=== PATIENT | female | born 1975 | race Two or more races ===

== ENCOUNTER 2018-12-04 18:15 | Inpatient (IN) | payer MEDICAID, OTHER | END 2018-12-06 22:00 | disposition home or self-care (01) | LOC: OVERFLOW 18:16 → TELE-WESTW 12-06 03:19 → WEST WING 12-05 04:04 → ER 18:15 | DX: I63.9 Cerebral infarction, unspecified (principal); I11.9 Hypertensive heart disease without heart failure ==

== ENCOUNTER 2020-05-06 01:48 | Emergency (ER) | payer OTHER, MEDICAID ==
[~2020-05-06] VITALS: Ht 160 cm; Wt 52.2 kg
[~2020-05-06 01:48] MED LIST: ASPI81CH43 PO; ATOR20TA50 PO; FLUO60TA PO; LISI-648 PO
[2020-05-06] MEDS ORDERED: SODIUM CHLORIDE 0.9% 1,000 ML IV ONE (03:45)
[2020-05-06 07:40] LABS: Basophils # (auto) 0 10 ^3/uL (0-0.2); Basophils % (auto) 0.1 % (0.0-2.0); Eosinophils # (auto) 0 10 ^3/uL (0-0.8); Lymphocytes # (auto) 0.6 10 ^3/uL (0.4-5.4); Neutrophils # (auto) 2.7 10 ^3/uL (1.6-8.6); White Blood Cell 3.5 10^3/uL (4.4-10.8)
[2020-05-06 07:42] LABS: Hematocrit 25.2 % (36.0-46.0); Hemoglobin 8.1 g/dL (12.2-16.2); Lymphocytes % (auto) 16.5 % (10.0-50.0); Mean Corpuscular Volume 68.9 fL (80.0-100.0); Monocytes # (auto) 0.2 10 ^3/uL (0-1.3); Monocytes % (auto) 5.1 % (0.0-12.0); Neutrophils % (auto) 78.3 % (37.0-80.0); Platelet Count (auto) 125 10^3/uL (140-450); Red Blood Cells 3.66 10^6/uL (4.0-5.20); Red Cell Distribution Width 17.9 % (11.8-14.3)
[2020-05-06 07:59] LABS: Chloride 109 mmol/L (98-107); Potassium 3.9 mmol/L (3.5-5.1); Sodium 137 mmol/L (136-145)
[2020-05-06 08:11] LABS: Alanine Aminotransferase 17 U/L (13-56); Albumin 2.8 g/dL (3.4-5.0); Alkaline Phosphatase 63 U/L (45-117); Anion Gap 7 (5-15); Aspartate Aminotransferase 17 U/L (15-37); Bilirubin, Total 0.2 mg/dL (0.2-1.0); Blood Urea Nitrogen 16 mg/dL (7-18); Calcium 7.6 mg/dL (8.5-10.1); Carbon Dioxide 21 mmol/L (21-32); GFR African American 82 mL/min; GFR Non-African American 68 mL/min; Glucose 97 mg/dL (74-106); Total Protein 6.5 g/dL (6.4-8.2)
[2020-05-06 09:50] VITALS: BP 149/62
[2020-05-06 10:18] LABS: Partial Thromboplastin Time 27.3 sec (23.0-31.2)
== END 2020-05-06 10:42 | disposition home or self-care (01) ==
LOC: EDBD 01:48 → ER 01:48
DX: R41.82 Altered mental status, unspecified (principal); I95.9 Hypotension, unspecified; E78.5 Hyperlipidemia, unspecified; I10 Essential (primary) hypertension; Z86.73 Personal history of transient ischemic attack (TIA), and cerebral infarction without residual deficits
CPT/HCPCS: 36415; 70450; 71045; 80053; 84484; 85025; 85610; 85730; 93005; 96360; 96361; 99285; J7030

== ENCOUNTER 2020-05-09 10:58 | Emergency (ER) | payer OTHER, MEDICAID ==
[~2020-05-09] VITALS: Ht 160 cm; Wt 52.2 kg
[2020-05-09 12:01] VITALS: BP 102/68
[2020-05-09] MEDS ORDERED: methylPREDNISolone SOD SUCC 125 MG/2 ML VL ONE (13:16)
[2020-05-09] MEDS ORDERED: diphenhdrAMINE HCL 50 MG/1 ML VL ONE (13:17)
== END 2020-05-09 14:20 | disposition home or self-care (01) ==
LOC: ER 10:58
DX: L50.0 Allergic urticaria (principal)
CPT/HCPCS: 99283; J1200; J2930

== ENCOUNTER 2024-03-30 15:07 | Inpatient (IN) | payer BC, MEDICAID ==
[~2024-03-30] VITALS: Ht 160 cm; Wt 57.5 kg
[~2024-03-30 15:07] MED LIST changes: +ESCI20TA PO; +FERR325T20 PO; +FURO40TA4 PO; -LISI-648 PO; +LISI10TA34 PO; +MACI1TAB2 PO; +POTA-228 PO; +SILD20TA41 PO; +SUMA50TA16 PO; +TREP1TAB PO
[2024-03-30] MEDS ORDERED: MORPHINE SULFATE INJ 2 MG/ml SYRG IV PRN (18:00)
[2024-03-30] MEDS ORDERED: ONDANSETRON HCL 4 MG/2 ML VIAL IV PRN (18:00)
[2024-03-30] MEDS: ALBUTEROL SULF 2.5 MG/0.5ML(0.5%) NEB SOLN NEB SCH (18:00)
[2024-03-30] MEDS: FUROSEMIDE 40 MG/4 ML VIAL IV SCH (18:00)
[2024-03-30] MEDS ORDERED: NITROGLYCERIN 0.4 MG SL TAB SL PRN (18:00)
[2024-03-30 19:31] VITALS: BP 109/75; PULSE 84; RESP 17; TEMP 97.5; O2SAT 94
[2024-03-30 20:00] VITALS: PULSE 81; O2SAT 94
[2024-03-30] MEDS: PIPERACILLIN-TAZOB 3.375GM 100 ML IV ONE (20:15)
[2024-03-30] MEDS: POTASSIUM CHLORIDE 8 MEQ TAB PO SCH (20:56)
[2024-03-30 21:00] VITALS: BP 110/76; PULSE 89; RESP 17; TEMP 98.3; O2SAT 91
[2024-03-30] MEDS: methylPREDNISolone SOD SUCC 40 MG/ML VL IV SCH (21:12)
[2024-03-30] MEDS: MORPHINE SULFATE INJ 2 MG/ml SYRG IV PRN (21:12)
[2024-03-30 21:43] VITALS: BP 109/75; PULSE 84; RESP 18; TEMP 98.3; O2SAT 93
[2024-03-31] VITALS (14 sets, daily range): BP systolic 93–115; BP diastolic 56–74; PULSE 68–99; RESP 14–24; TEMP 97.3–98.5; O2SAT 91–98
--- NOTE | 2024-03-31 00:35 | DVHHP2 ---
RAHEEM TAYLOR NP 03/31/24 0035: History of Present Illness Reason for Visit: syncope and fall History of Present Illness Elinor Franco is a 49 y.o. female patient with history of pulmonary HTN who presents with a chief complaint of nausea, vomiting, and diarrhea for the past couple of days. Patient had an unwitnessed fall today when she got up to use her commode. She was found down on the ground by family members. Denies recalling the event. EMS reported the patient was hypotensive on arrival and hypoxic with oxygen saturation of 80%. On arrival to the emergency department patient had an oxygen saturation 92% on 10 L nonrebreather mask. Patient denies any fevers, chills, , chest pain, palpitations, leg edema. Patient was initially seen At [facility] emergency department and transferred to [facility] per O request Initial findings as follow W5.1, H&H 10.8/35.4, PLT 128 Na 143, K3 .4, BUN 29, creatinine 1.20, GFR 55 D Dimer 191 UA negative ABG pH 7.3, PCO2 34, PO [address]: right periorbital and facial soft tissue swelling without underlying fracture or acute intracranial abnormality. CTC spine: no evidence of acute fracture or subluxation CTA chest: no acute abnormality. No pulmonary embolus CXR: moderate multifocal patchy airspace disease Cardiovascular: HTN Smoke: No ALCOHOL: none Drugs: None Lives: with Family Review of Systems Constitutional: Yes: Weakness; No: Fever, Chills, Sweats, Malaise, Other Eyes: No: Pain, Vision change, Conjunctivae inflammation, Eyelid inflammation, Other, Redness Respiratory: Shortness of breath; No: Cough, Dry, SOB with excertion, Wheezing, Hemoptysis, Pleuritic Pain, Sputum, Wheezing, Other Cardiovascular: No: Chest Pain, Palpitations, Orthopnea, Paroxysmal Noc. Dyspnea, Edema, Lt Headedness, Other Gastrointestinal: No: Nausea, Vomiting, Abdominal Pain, Diarrhea, Constipation, Melena, Hematochezia, Other Genitourinary: No Dysuria, No Frequency, No Incontinence, No Hematuria, No Retention, No Other Musculoskeletal: No: other, neck pain, shoulder pain, arm pain, back pain, hand pain, leg pain, foot pain Neurological: No: Weakness, Numbness, Incoordination, Change in speech, Confusion, Seizures, Other Allergies: Coded Allergies: NO KNOWN ALLERGIES (Unverified , 12/04/18) Medications Current Medications Medications Dose Ordered Sig/Abrahan Route Start Time Stop Time Status Last Admin Dose Admin Nitroglycerin 0.4 mg Q5MINP PRN SL 03/30/24 18:00 Morphine Sulfate 2 mg Q30M PRN IV 03/30/24 18:00 Piperacillin Sod/ Tazobactam Sod 100 ml @ 25 mls/hr Q8H IV 03/31/24 01:00 Albuterol 2.5 mg Q6HWA NEB 03/30/24 18:00 Furosemide 40 mg BIDD IV 03/30/24 18:00 03/30/24 18:00 40 MG Potassium Chloride 8 meq BID PO 03/30/24 22:00 03/30/24 20:56 8 MEQ Ondansetron HCl 4 mg Q4HPRN PRN IV 03/30/24 18:00 Morphine Sulfate 2 mg Q4HPRN PRN IV 03/30/24 18:00 03/30/24 21:12 2 MG Famotidine 20 mg DAILY PO 03/31/24 10:00 Enoxaparin Sodium 40 mg DAILY SC 03/31/24 10:00 Methylprednisolone Sodium Succinate 20 mg BID IV 03/30/24 22:00 03/30/24 21:12 20 MG Exam Vital Signs Vital Signs Date Time Temp Pulse Resp B/P (MAP) Pulse Ox O2 Delivery O2 Flow Rate FiO2 03/30/24 21:43 98.3 84 18 109/75 93 21 98.3 03/30/24 20:00 Nasal Cannula* 4 General Appearance: Alert, Oriented X3, Cooperative, mild distress HEENT: Other (Hematoma Right eye) Respiratory: Clear to auscultation, Normal air movement Cardiovascular: Regular rate, Normal S1, Normal S2 Abdominal: Normal bowel sounds, Soft, No tenderness Extremities: No clubbing, No cyanosis, No edema, Normal pulses Skin: No breakdown Neuro: Normal speech, Cranial nerves 3-12 NL Psych/Mental Status: Mental status NL, Mood NL Assessment/Plan Assessment/Plan Acute hypoxic respiratory failure Pneumonia Syncope and collapse Anemia, chronic Hx CHF Plan Admit to telemetry Consult ID. IV ABX Echocardiogram. Orthostatic vital signs Bronchodilators. As needed supplemental O2 to maintain O2 saturation greater than 93%. IV steroids. Monitor CBC/BMP. Correct electrolytes as needed. GI Prophylaxis Pepcid / DVT prophylaxis Lovenox Plan discussed with: Patient Date of Service: Mar 31, 2024 Billing Provider: TATE POLANCO MD Common Visit Codes: NOT BILLABLE TATE POLANCO MD 03/31/24 1241: Review of Systems Allergies: Coded Allergies: NO KNOWN ALLERGIES (Unverified , 12/04/18) Additional Comments Additional Comments Additional Comments Patient seen and evaluated by nurse practitioner. Patient has shaft is reviewed. I agree with the nurse practitioner's evacuation, documentation, assessment and care plan as outlined. Patient seen and evaluated by me this afternoon. RAHEEM TAYLOR NP Mar 31, 2024 00:35 TATE POLANCO MD Mar 31, 2024 12:41
[2024-03-31] MEDS: PIPERACILLIN-TAZOB 3.375GM 100 ML IV SCH (01:28)
--- NOTE | 2024-03-31 07:16 | DVH ---
CHEST RADIOGRAPH Indication:sob Technique: Single frontal view of the chest was obtained Comparison: CHEST PORTABLE on DOS: 05/06/20 FINDINGS: Lines and Tubes: None Lungs: Diffuse bilateral consolidation. Right perihilar density. Pleura: No effusion. No pneumothorax. Cardiomediastinal contours: Cardiovascular silhouette is magnified. Bones: No acute osseous abnormality. IMPRESSION: 1. Diffuse bilateral consolidation. Right perihilar density. Noncontrast CT is recommended to exclu de mass.
[2024-03-31 07:20] LABS: Basophils # (auto) 0 10 ^3/uL (0-0.2); Basophils % (auto) 0.6 % (0.0-2.0); Eosinophils # (auto) 0 10 ^3/uL (0-0.8); Hematocrit 33.6 % (36.0-46.0); Hemoglobin 10.8 g/dL (12.2-16.2); Lymphocytes # (auto) 0.4 10 ^3/uL (0.4-5.4); Lymphocytes % (auto) 12.4 % (10.0-50.0); Mean Corpuscular Hemoglobin 28.5 pg (28.0-32.0); Mean Corpuscular Hgb Conc. 32.3 g/dL (32.0-36.0); Mean Corpuscular Volume 88.4 fL (80.0-100.0); Monocytes # (auto) 0.1 10 ^3/uL (0-1.3); Monocytes % (auto) 4.3 % (0.0-12.0); Neutrophils # (auto) 2.6 10 ^3/uL (1.6-8.6); Neutrophils % (auto) 82.7 % (37.0-80.0); Nucleated Red Blood Cells % 0.2 %; Platelet Count (auto) 122 10^3/uL (140-450); Red Cell Distribution Width 16.1 % (11.8-14.3); White Blood Cell 3.2 10^3/uL (4.4-10.8)
[2024-03-31 07:25] LABS: Calcium 8.8 mg/dL (8.7-10.4); Chloride 112 mmol/L (98-107); Sodium 141 mmol/L (136-145)
[2024-03-31 07:26] LABS: Anion Gap 11 (5-15); Carbon Dioxide 18 mmol/L (20-31)
[2024-03-31 07:32] LABS: BUN/Creatinine Ratio 14.6 (10.0-20.0); Blood Urea Nitrogen 19 mg/dL (9-23); Glucose 125 mg/dL (74-106)
[2024-03-31] MEDS: ENOXAPARIN SOD 40 MG/0.4 ML SYRINGE SC SCH (10:26)
[2024-03-31] MEDS: FAMOTIDINE 20 MG TAB PO SCH (10:27)
--- NOTE | 2024-03-31 11:33 | DVHINCON2 ---
Date of service: Mar 31, 2024 Reason for Consultation Syncope and fall. History of Present Illness Patient is a 49-year-old female presents to the hospital for the complaint of nausea, vomiting, and diarrhea for the past couple of days. Patient had an unwitnessed fall today when she got up to use her commode. She w as found down on the ground by family members. She denies recalling the event. EMS reported the patient was hypotensive on arrival and hypoxic with oxygen saturation of 80%. On arrival to the emergency department patient had an oxygen saturation 92% on 10 L nonrebreather mask. She denies any fevers, chills, chest pain, palpitations or leg edema. She is on nasal canula. Patient was initially seen At [facility] emergency department and transferred to [facility] per O request. Chest x-ray: 03/31: Diffuse bilateral consolidation. Right perihilar density. Noncontrast CT is recommended to exclude mass. Initial findings as follow W5.1, H&H 10.8/35.4, PLT 128 Na 143, K3 .4, BUN 29, creatinine 1.20, GFR 55 D Dimer 191 UA negative ABG pH 7.3, PCO2 34, PO [address]: right periorbital and facial soft tissue swelling without underlying fracture or acute intracranial abnormality. CTC spine: no evidence of acute fracture or subluxation CTA chest: no acute abnormality. No pulmonary embolus CXR: moderate multifocal patchy airspace disease Past Medical History She has a history of pulmonary Hypertension. Family History: Cerebrovascular accident (CVA) G8 FATHER Hypertension G8 MOTHER G8 FATHER G8 SISTER Social History Smoke: No ALCOHOL: none Drugs: None Lives: with Family Allergies: Coded Allergies: NO KNOWN ALLERGIES (Unverified , 12/04/18) Home Meds Active Scripts Atorvastatin Calcium (ATORVASTATIN CALCIUM) 20 Mg Tab, 20 MG PO HS, #30 TAB Prov:HARMAN HAMM MD 12/06/18 Aspirin (Asa) 81 Mg Ch, 81 MG PO DAILY, #30 Prov:HARMAN HAMM MD 12/06/18 Reported Medications Lisinopril (Lisinopril) 10 Mg Tab, 10 MG PO DAILY, TAB 12/05/18 Fluoxetine Hcl (FLUOXETINE HCL) 60 Mg Tab, 20 MG PO DAILY, TAB 12/05/18 Current Medications Current Medications Medications (Trade) Dose Ordered Sig/Abrahan Route PRN Reason Start Time Stop Time Status Last Admin Nitroglycerin (Ntrostat Sublingual) 0.4 mg Q5MINP PRN SL FOR CHEST PAIN 03/30/24 18:00 Morphine Sulfate 2 mg Q30M PRN IV FOR CHEST PAIN 03/30/24 18:00 Piperacillin Sod/ Tazobactam Sod 100 ml @ 25 mls/hr Q8H IV 03/31/24 01:00 03/31/24 10:27 Albuterol (Ventolin Medneb) 2.5 mg Q6HWA NEB 03/30/24 18:00 03/31/24 06:40 Furosemide (Lasix Injection) 40 mg BIDD IV 03/30/24 18:00 03/31/24 06:25 Potassium Chloride (Klor-Con Tablet) 8 meq BID PO 03/30/24 22:00 03/31/24 10:28 Ondansetron HCl (Zofran) 4 mg Q4HPRN PRN IV NAUSEA / VOMITING 03/30/24 18:00 Morphine Sulfate 2 mg Q4HPRN PRN IV SEVERE PAIN (7-10 PAIN SCALE) 03/30/24 18:00 03/31/24 10:41 Famotidine (Pepcid Tablet) 20 mg DAILY PO 03/31/24 10:00 03/31/24 10:27 Enoxaparin Sodium (Lovenox) 40 mg DAILY SC 03/31/24 10:00 03/31/24 10:26 Methylprednisolone Sodium Succinate (Solu Medrol) 20 mg BID IV 03/30/24 22:00 03/31/24 10:26 Review of Systems Constitutional: Yes: Weakness; No: Fever, Chills, Sweats, Malaise, Other Eyes: No: Pain, Vision change, Conjunctivae inflammation, Eyelid inflammation, Other, Redness Respiratory: Shortness of breath; No: Cough, Dry, SOB with excertion, Wheezing, Hemoptysis, Pleuritic Pain, Sputum, Wheezing, Other Cardiovascular: No: Chest Pain, Palpitations, Orthopnea, Paroxysmal Noc. Dyspnea, Edema, Lt Headedness, Other Gastrointestinal: No: Nausea, Vomiting, Abdominal Pain, Diarrhea, Constipation, Melena, Hematochezia, Other Genitourinary: No Dysuria, No Frequency, No Incontinence, No Hematuria, No Retention, No Other Musculoskeletal: No: other, neck pain, shoulder pain, arm pain, back pain, hand pain, leg pain, foot pain, leg edema. Neurological: No: Weakness, Numbness, Incoordination, Change in speech, Confusion, Seizures, Other Vital Signs Vital Signs Date Time Temp Pulse Resp B/P (MAP) Pulse Ox O2 Delivery O2 Flow Rate FiO2 03/31/24 10:41 55 16 127/64 03/31/24 09:00 97.3 94 97.3 03/31/24 06:40 Nasal Cannula* 3 32 Physical Exam General Appearance: Alert, Oriented X3, Cooperative, mild distress HEENT: Other (Hematoma Right eye) Respiratory: Clear to auscultation, Normal air movement Cardiovascular: Regular rate, Normal S1, Normal S2 Abdominal: Normal bowel sounds, Soft, No tenderness Extremities: No clubbing, No cyanosis, No edema, Normal pulses Skin: No breakdown Neuro: Normal speech, Cranial nerves 3-12 NL Psych/Mental Status: Mental status NL, Mood NL Labs/Diagnostic Data Labs Test 03/31/24 05:43 Range/Units White Blood Count 3.2 L 4.4-10.8 10^3/uL Red Blood Count 3.80 L 4.0-5.20 10^6/uL Hemoglobin 10.8 L 12.2-16.2 g/dL Hematocrit 33.6 L 36.0-46.0 % Mean Corpuscular Volume 88.4 80.0-100.0 fL Mean Corpuscular Hemoglobin 28.5 28.0-32.0 pg Mean Corpuscular Hemoglobin Concent 32.3 32.0-36.0 g/dL Red Cell Distribution Width 16.1 H 11.8-14.3 % Platelet Count 122 L 140-450 10^3/uL Mean Platelet Volume 10.5 6.9-10.8 fL Neutrophils (%) (Auto) 82.7 H 37.0-80.0 % Lymphocytes (%) (Auto) 12.4 10.0-50.0 % Monocytes (%) (Auto) 4.3 0.0-12.0 % Eosinophils (%) (Auto) 0.0 0.0-7.0 % Basophils (%) (Auto) 0.6 0.0-2.0 % Neutrophils # (Auto) 2.6 1.6-8.6 10 ^3/uL Lymphocytes # (Auto) 0.4 0.4-5.4 10 ^3/uL Monocytes # (Auto) 0.1 0-1.3 10 ^3/uL Eosinophils # (Auto) 0 0-0.8 10 ^3/uL Basophils # (Auto) 0 0-0.2 10 ^3/uL Nucleated Red Blood Cells 0.2 % Sodium Level 141 136-145 mmol/L Potassium Level 4.0 3.5-5.1 mmol/L Chloride Level 112 H 98-107 mmol/L Carbon Dioxide Level 18 L 20-31 mmol/L Anion Gap 11 5-15 Blood Urea Nitrogen 19 9-23 mg/dL Creatinine 1.30 H 0.550-1.02 mg/dL Glomerular Filtration Rate Calc 50 >90 mL/min BUN/Creatinine Ratio 14.6 10.0-20.0 Serum Glucose 125 H 74-106 mg/dL Calcium Level 8.8 8.7-10.4 mg/dL Assessment Patient is a 49-year-old female presented to the hospital with: Pneumonia Acute hypoxic respiratory failure Syncope and collapse Anemia, chronic Hx CHF Recommendations: SEYMOUR DUNN MD Mar 31, 2024 11:33
--- NOTE | 2024-03-31 16:20 | DVH ---
Procedure: CT CHEST WITHOUT CONTRAST Reason for study/Clinical History: Pneumonia/pulmonary hypertension Comparison Study: None available at time of dictation. Exam Date: 03/31/2024 03:39 PM TECHNIQUE: Multidetector CT of the chest was performed from the lung apices to the upper abdomen with out the use of intravenous contract. Axial, coronal and sagittal multiplanar reformats were performed . Radiation Dose Information: CT Dose: CTDI volume is 6.56 mGy. Dose-length product is 264.77 mGy*cm The dose indicators for CT are the volume Computed Tomography (CT) Dose Index (CTDIvol) and the Dose Length Product (DLP), and are measured in units of mGy and mGy-cm, respectively. These indicators are not patient dose, but values generated from the CT scanner acquisition factors. The report includes radiation exposure data for exposures received during this examination. FINDINGS: Lower neck: Normal thyroid. Lungs: No focal consolidation, pleural effusion or pneumothorax. Atelactasis and scarring in the lung bases. Heart/Vascular Structures: [id number] cardiomegaly. Moderate pericardial effusion. Lymph Nodes: No adenopathy Pleura: No pleural effusion or significant pneumothorax. Musculoskeletal: No acute osseous abnormality. Soft tissues: Normal. Upper abdomen: Heterogeneous appearance of the liver. IMPRESSION: 1. No pneumonia. [id number] cardiomegaly. Moderate pericardial effusion. Heterogeneous appeara nce of the liver. Consider further evaluation with CT of the abdomen with contrast. Radiation optimization: All CT scans at this facility use at least one of these dose optimization montrell hniques: automated exposure control mA and/or kV adjustment per patient size (includes targeted exam s where dose is matched to clinical indication) or iterative reconstruction. HS:Y
--- NOTE | 2024-03-31 16:34 | DVHSR ---
APPROVED REPORT EXAM: Two-dimensional and M-mode echocardiogram with Doppler, color Doppler and Bubble Study. Blood Pressure: 96/61 mmHg INDICATION Heart Failure RISK FACTORS Height: 5'3", Weight: 130 DIMENSIONS LVDd3.2 (3.8-5.7cm)LA (2D)3.0 (1.9-4.0cm)Aortic Root3.1 (2.0-3.7cm) LVDs2.0 (2.5-4.0cm)LA (MM) (1.9-4.0cm)Aortic Cusp Exc1.8 (1.5-2.0cm) EF (%) 70.0 (55-70%)Rt. Atrium6.5 (1.9-4.0cm)Asc. Aorta3.2 cm IVSd1.6 (0.7-1.1cm)RV (D)4.7 (1.8-2.4cm) PWd1.1 (0.7-1.1cm) Mitral Valve MitralMitral Stenosis E wave0.48m/sMV Mean GR.mmHg A wave0.57m/sMV Peak GR.mmHg E/A ratio0.82D MVAcm2 DECEL [id number] 1/2 Timems Aortic Valve Aortic ValveAortic Stenosis V10.65m/Liza Mean GR.1mmHg V20.74m/Liza Peak GR.2mmHg LVOT Diameter2.1 (1.8-2.4cm)Doppler AVA3.04cm2 2D AVA2.20cm2 AI P 1/2 Xfex751.04ms Pulmonic Valve V20.67m/s Tricuspid Valve TR Velocity4.12m/s [id number] ATRIA Injection of contrast documented an interatrial shunt. Conclusion Severe concentric left ventricular hypertrophy. Normal left ventricular systolic function estimated ejection fraction 55%. There is a grade 1 diastolic dysfunction. Severe right ventricular hypertrophy. Severe right ventricular systolic dysfunction. Severe pulmona ry hypertension with estimated right ventricular systolic pressure 80 mm of mercury. Severe right atrial dilatation. There is right and left intra-atrial shunting evident by bubble study. In keeping with the patent fo ramen ovale versus longstanding small secundum ASD. There is right ventricular outflow tract hypertrophy. There is moderate pulmonary valve regurgitatio n. The aortic valve is trileaflet opens well there is no evidence of stenosis or regurgitation. The mitral valve shows mild mitral valve regurgitation. The tricuspid valve has moderately severe tricuspid valve regurgitation. No significant pericardial effusion.
[2024-03-31] MEDS: ATORVASTATIN 20 MG TAB PO SCH (22:04)
[2024-04-01] VITALS (10 sets, daily range): BP systolic 0–108; BP diastolic 56–64; PULSE 74–89; RESP 15–17; TEMP 97.6–98.5; O2SAT 94–97
[2024-04-01] MEDS ORDERED: ACETAMINOPHEN 325 MG TAB PO PRN (01:00)
[2024-04-01 06:35] LABS: Basophils # (auto) 0 10 ^3/uL (0-0.2); Basophils % (auto) 0.3 % (0.0-2.0); Eosinophils # (auto) 0 10 ^3/uL (0-0.8); Hematocrit 33.9 % (36.0-46.0); Hemoglobin 11.2 g/dL (12.2-16.2); Lymphocytes # (auto) 0.4 10 ^3/uL (0.4-5.4); Lymphocytes % (auto) 6.3 % (10.0-50.0); Mean Corpuscular Hemoglobin 28.4 pg (28.0-32.0); Mean Corpuscular Volume 86.2 fL (80.0-100.0); Monocytes # (auto) 0.2 10 ^3/uL (0-1.3); Monocytes % (auto) 2.5 % (0.0-12.0); Neutrophils # (auto) 5.6 10 ^3/uL (1.6-8.6); Neutrophils % (auto) 90.9 % (37.0-80.0); Nucleated Red Blood Cells % 0.1 %; Platelet Count (auto) 136 10^3/uL (140-450); Red Blood Cells 3.93 10^6/uL (4.0-5.20); Red Cell Distribution Width 15.9 % (11.8-14.3); White Blood Cell 6.1 10^3/uL (4.4-10.8)
[2024-04-01 06:47] LABS: Anion Gap 9 (5-15); Carbon Dioxide 25 mmol/L (20-31); Chloride 108 mmol/L (98-107); Potassium 3.6 mmol/L (3.5-5.1); Sodium 142 mmol/L (136-145)
[2024-04-01 06:49] LABS: Calcium 8.7 mg/dL (8.7-10.4)
[2024-04-01 06:53] LABS: Blood Urea Nitrogen 26 mg/dL (9-23); Glucose 127 mg/dL (74-106)
[2024-04-01] MEDS ORDERED: PATIENTS OWN MEDICATION (Lisinopril 10 MG) PO SCH (10:00)
[2024-04-01] MEDS: LISINOPRIL 5 MG TAB PO SCH (10:00)
[2024-04-01] MEDS ORDERED: PATIENTS OWN MEDICATION (Fluoxetine Hcl 20 MG) PO SCH (10:00)
[2024-04-01] MEDS: FLUoxetine HCL 20 MG CAP PO SCH (10:22)
[2024-04-01] MEDS: ASPirin 81 mg TAB PO SCH (10:23)
--- NOTE | 2024-04-01 11:40 | DVHPN2 ---
Progress Note - Dictate Date Seen: Apr 01, 2024 Subjective Patient was seen and evaluated at bedside. Vitals are stable. She is on nasal canula. Antibiotic status: Piperacillin Sodium 100 ml @ 25 ml/hr [Started 03/31 - ongoing] vital signs Vital Sign Date Time Temp Pulse Resp B/P (MAP) Pulse Ox O2 Delivery O2 Flow Rate FiO2 04/01/24 11:13 94 Nasal Cannula 3.0 04/01/24 11:13 32 04/01/24 10:36 84 16 93/58 04/01/24 08:43 98.5 98.5 Total Intake and Output 03/31/24 03/31/24 04/01/24 15:00 23:00 07:00 Intake Total 975 ml 500 ml Output Total 600 ml Balance 975 ml -100 ml medications Current Medications Medications Dose Ordered Sig/Abrahan Route Start Time Stop Time Status Last Admin Dose Admin Nitroglycerin 0.4 mg Q5MINP PRN SL 03/30/24 18:00 Morphine Sulfate 2 mg Q30M PRN IV 03/30/24 18:00 Piperacillin Sod/ Tazobactam Sod 100 ml @ 25 mls/hr Q8H IV 03/31/24 01:00 04/01/24 10:52 25 MLS/HR Albuterol 2.5 mg Q6HWA NEB 03/30/24 18:00 03/31/24 18:14 2.5 MG Furosemide 40 mg BIDD IV 03/30/24 18:00 03/31/24 17:37 40 MG Potassium Chloride 8 meq BID PO 03/30/24 22:00 04/01/24 10:23 8 MEQ Ondansetron HCl 4 mg Q4HPRN PRN IV 03/30/24 18:00 Morphine Sulfate 2 mg Q4HPRN PRN IV 03/30/24 18:00 04/01/24 10:36 2 MG Famotidine 20 mg DAILY PO 03/31/24 10:00 04/01/24 10:24 20 MG Enoxaparin Sodium 40 mg DAILY SC 03/31/24 10:00 04/01/24 10:22 40 MG Methylprednisolone Sodium Succinate 20 mg BID IV 03/30/24 22:00 04/01/24 10:23 20 MG Aspirin 81 mg DAILY PO 04/01/24 10:00 04/01/24 10:23 81 MG Atorvastatin Calcium 20 mg HS PO 03/31/24 22:00 03/31/24 22:04 20 MG Patient Own Medication 20 mg DAILY PO 04/01/24 10:00 UNV Patient Own Medication 10 mg DAILY PO 04/01/24 10:00 UNV Lisinopril 10 mg DAILY PO 04/01/24 10:00 Fluoxetine HCl 20 mg DAILY PO 04/01/24 10:00 04/01/24 10:22 20 MG Acetaminophen 650 mg Q6HP PRN PO 04/01/24 01:00 objective General Appearance: Alert, Oriented X3, Cooperative, mild distress HEENT: Other (Hematoma Right eye) Respiratory: Clear to auscultation, Normal air movement Cardiovascular: Regular rate, Normal S1, Normal S2 Abdominal: Normal bowel sounds, Soft, No tenderness Extremities: No clubbing, No cyanosis, No edema, Normal pulses Skin: No breakdown Neuro: Normal speech, Cranial nerves 3-12 NL Psych/Mental Status: Mental status NL, Mood NL laboratory and microbiology Laboratory Tests 04/01/24 04:55 Test 04/01/24 04:55 Range/Units Serum Glucose 127 H 74-106 mg/dL Assessment/Plan Patient is a 49-year-old female presented to the hospital with: Pneumonia Acute hypoxic respiratory failure Syncope and collapse Anemia, chronic Hx CHF Recommendations: SEYMOUR DUNN MD Apr 01, 2024 11:40
--- NOTE | 2024-04-01 14:39 | DVHDS2 ---
Discharge Summary Date of Admission Mar 30, 2024 at 19:13 Date of Discharge: Apr 01, 2024 Labs/Diagnostic Data: Laboratory Results Test 04/01/24 04:55 03/31/24 21:09 03/31/24 05:43 White Blood Count 6.1 10^3/uL (4.4-10.8) Red Blood Count 3.93 10^6/uL (4.0-5.20) Hemoglobin 11.2 g/dL (12.2-16.2) Hematocrit 33.9 % (36.0-46.0) Mean Corpuscular Volume 86.2 fL (80.0-100.0) Mean Corpuscular Hemoglobin 28.4 pg (28.0-32.0) Mean Corpuscular Hemoglobin Concent 33.0 g/dL (32.0-36.0) Red Cell Distribution Width 15.9 % (11.8-14.3) Platelet Count 136 10^3/uL (140-450) Mean Platelet Volume 10.1 fL (6.9-10.8) Neutrophils (%) (Auto) 90.9 % (37.0-80.0) Lymphocytes (%) (Auto) 6.3 % (10.0-50.0) Monocytes (%) (Auto) 2.5 % (0.0-12.0) Eosinophils (%) (Auto) 0.0 % (0.0-7.0) Basophils (%) (Auto) 0.3 % (0.0-2.0) Neutrophils # (Auto) 5.6 10 ^3/uL (1.6-8.6) Lymphocytes # (Auto) 0.4 10 ^3/uL (0.4-5.4) Monocytes # (Auto) 0.2 10 ^3/uL (0-1.3) Eosinophils # (Auto) 0 10 ^3/uL (0-0.8) Basophils # (Auto) 0 10 ^3/uL (0-0.2) Nucleated Red Blood Cells 0.1 % Sodium Level 142 mmol/L (136-145) Potassium Level 3.6 mmol/L (3.5-5.1) Chloride Level 108 mmol/L (98-107) Carbon Dioxide Level 25 mmol/L (20-31) Anion Gap 9 (5-15) Blood Urea Nitrogen 26 mg/dL (9-23) Creatinine 1.62 mg/dL (0.550-1.02) Glomerular Filtration Rate Calc 38 mL/min (>90) BUN/Creatinine Ratio 16.0 (10.0-20.0) Serum Glucose 127 mg/dL (74-106) Calcium Level 8.7 mg/dL (8.7-10.4) POC Glucose 202 mg/dl (70-106) Other Laboratory Tests 04/01/24 04:55 Brief Hx & Hospital Course: Elinor Franco is a 49 y.o. female patient with history of pulmonary HTN who presents with a chief complaint of nausea, vomiting, and diarrhea for the past couple of days. Patient had an unwitnessed fall today when she got up to use her commode. She was found down on the ground by family members. Denies recalling the event. EMS reported the patient was hypotensive on arrival and hypoxic with oxygen saturation of 80%. On arrival to the emergency department patient had an oxygen saturation 92% on 10 L nonrebreather mask. Patient denies any fevers, chills, , chest pain, palpitations, leg edema. Patient was initially seen [facility] emergency department and transferred to [facility] per O request. She is admitted and received IV diuretics. Treated with the breathing treatments. Patient resumed on her pulmonary hypertension medications. Chest CT did not show any pneumonia. [id number] cardiomegaly noted. 2D echocardiogram done showed a grade 1 diastolic dysfunction. Right ventricular systolic pressure elevated at 83 mm of medically consistent with pulmonary hypertension. No significant pericardial effusion identified. Patient is counseled and educated regarding oral fluid restriction at home given her diastolic heart failure along with pulmonary hypertension. Patient is advised to continue her Lasix at home as well. Patient is back to baseline 3 L oxygen in the hospital oxygenating normal. Patient is otherwise feeling better. Therefore it is felt she could be safely discharged home. However she is strongly advised to follow up with senior oracle pl sql developer did have referral to [facility] specialist for further management of her advanced pulmonary hypertension and diastolic heart failure. Meantime patient is advised to be compliant with the her diuretics and pulmonary hypertension medications. Patient verbalized understanding of this, verbalized understanding over hospital diagnosis, CT scan findings, echocardiogram results, discharge medications, discharge instructions and agree with the discharge follow-up plan of care as mentioned. Operations or Procedures Conclusion Severe concentric left ventricular hypertrophy. Normal left ventricular systolic function estimated ejection fraction 55%. There is a grade 1 diastolic dysfunction. Severe right ventricular hypertrophy. Severe right ventricular systolic dysfunction. Severe pulmonary hypertension with estimated right ventricular systolic pressure 80 mm of mercury. Severe right atrial dilatation. There is right and left intra-atrial shunting evident by bubble study. In keeping with the patent foramen ovale versus longstanding small secundum ASD. There is right ventricular outflow tract hypertrophy. There is moderate pulmonary valve regurgitation. The aortic valve is trileaflet opens well there is no evidence of stenosis or regurgitation. The mitral valve shows mild mitral valve regurgitation. The tricuspid valve has moderately severe tricuspid valve regurgitation. No significant pericardial effusion. SIGNED BY: BOOM OLIVIA MD SIGNED DATE/TIME: 03/31/24 6640 Condition at Discharge: Stable Final Diagnosis/Problems List Pulmonary hypertension, acute on chronic respiratory failure Discharge Disposition: Home Discharge Instruct/Medications Diet: Consistent carbohydrate, Cardiac 2g Na,low cholest Diet comment: Strictly limit your oral fluid the/liquid intake daily to 1200 mL only. Activity: No Restrictions, As Tolerated Follow Up/Referral: Primary care physician and referral to [facility] specialist for further management Medications: Home medications Continued Medications: Aspirin (Asa) 81 Mg Ch 81 MG PO DAILY, #30 Atorvastatin Calcium (Atorvastatin Calcium) 20 Mg Tab 20 MG PO HS, #30 TAB Escitalopram Oxalate (Lexapro) 20 Mg Tab 1 TAB PO DAILY for 90 Days, #90 Ferrous Sulfate (Ferosul) 325 Mg Tab 1 TAB PO BID for 30 Days, #60 Fluoxetine Hcl (Fluoxetine Hcl) 60 Mg Tab 20 MG PO DAILY, TAB Furosemide (Furosemide) 40 Mg Tab 1 TAB PO BID for 30 Days, #60 Lisinopril (Lisinopril) 10 Mg Tab 10 MG PO DAILY, TAB Macitentan (Opsumit) 10 Mg Tab 1 TAB PO DAILY for 30 Days, #30 Potassium Chloride (Potassium Chloride ER) 10 Meq Tab 1 TAB PO DAILY for 30 Days, #30 Sildenafil Citrate (Sildenafil Citrate) 20 Mg Tab 1 MG PO TID for 30 Days, #90 Sumatriptan Succinate (Sumatriptan Succinate) 50 Mg Tab 1 TAB PO UD for 30 Days, #9 TAKE 1 TABLET BY MOUTH AT ONSET OF HEADACHE. IF NO RELIEF AFTER 2 HOURS, MAY TAKE ONE ADDITIONAL TABLET. Treprostinil Diolamine (Orenitram) 0.25 Mg Tab MG PO UD for 30 Days, #180 Discharge Statement: "Patient was advised to return to the ER or call 911 if any headaches, dizziness, shortness of breath, chest pain, abdominal pain, bleeding, fevers, or worsening of medical condition. Patient was counseled about treatment plan, medications, possible side effects, patientverbalized understanding. All questions were answered to the best of my ability. This discharge took greater then 30 minutes in planning, reviewing documentation, counseling the patient, and discussing with other team members." ASSESSMENT ASSESSMENT Assessment Pulmonary hypertension, acute on chronic respiratory failure TATE POLANCO MD Apr 01, 2024 14:39
== END 2024-04-01 19:43 | disposition home or self-care (01) | DRG 189 ==
LOC: TELE-CENTR 19:13
PROVIDERS: ADMIT Hospitalist; ATTEND Hospitalist
DX: J96.21 Acute and chronic respiratory failure with hypoxia (principal); D64.9 Anemia, unspecified; I50.9 Heart failure, unspecified; I95.9 Hypotension, unspecified; I11.0 Hypertensive heart disease with heart failure; I27.20 Pulmonary hypertension, unspecified; Z82.49 Family history of ischemic heart disease and other diseases of the circulatory system; Z82.3 Family history of stroke; W18.39XA Other fall on same level, initial encounter; Y93.89 Activity, other specified; Y92.89 Other specified places as the place of occurrence of the external cause; Y99.8 Other external cause status
CPT/HCPCS: 36415; 71045; 71250; 80048; 82962; 85025; 87278; 93306; 94640; 97163; G0378; J2543

== ENCOUNTER 2024-04-03 22:27 | Inpatient (IN) | payer BC, MEDICAID ==
[~2024-04-03] VITALS: Ht 160 cm; Wt 53.9 kg
[2024-04-03 23:02] LABS: Basophils # (auto) 0 10 ^3/uL (0-0.2); Basophils % (auto) 0.7 % (0.0-2.0); Eosinophils # (auto) 0.1 10 ^3/uL (0-0.8); Eosinophils % (auto) 1.9 % (0.0-7.0); Hematocrit 35.7 % (36.0-46.0); Hemoglobin 11.8 g/dL (12.2-16.2); Lymphocytes # (auto) 0.7 10 ^3/uL (0.4-5.4); Lymphocytes % (auto) 13.5 % (10.0-50.0); Mean Corpuscular Hemoglobin 28.9 pg (28.0-32.0); Mean Corpuscular Volume 87.6 fL (80.0-100.0); Monocytes # (auto) 0.3 10 ^3/uL (0-1.3); Monocytes % (auto) 4.6 % (0.0-12.0); Neutrophils # (auto) 4.4 10 ^3/uL (1.6-8.6); Neutrophils % (auto) 79.3 % (37.0-80.0); Platelet Count (auto) 120 10^3/uL (140-450); Red Blood Cells 4.07 10^6/uL (4.0-5.20); Red Cell Distribution Width 15.9 % (11.8-14.3); White Blood Cell 5.5 10^3/uL (4.4-10.8)
[2024-04-03 23:20] VITALS: PULSE 78; O2SAT 93
--- NOTE | 2024-04-03 23:20 | DVH ---
XY CHEST PORTABLE, HISTORY: Shortness a breath COMPARISON: XY CHEST PORTABLE on DOS: 03/31/24, CHEST PORTABLE on DOS: 05/06/20 XY CHEST PORTABLE on DOS: 03/31/24, CHEST PORTABLE on DOS: 05/06/20 TECHNICAL DATA: 1 view of the chest was obtained. FINDINGS: Lines and tubes: None Cardiomediastinal silhouette: enlarged Pulmonary vasculature: prominent Lung expansion: normal Lung airspace: normal Lung interstitium: normal Pleura: normal Pneumothorax: no Bones: Unremarkable Other: no IMPRESSION: Cardiomegaly with pulmonary vascular congestion.
[2024-04-03 23:31] LABS: Chloride 111 mmol/L (98-107); Potassium 3.7 mmol/L (3.5-5.1); Sodium 142 mmol/L (136-145)
[2024-04-03 23:32] LABS: Anion Gap 5 (5-15); Carbon Dioxide 26 mmol/L (20-31)
[2024-04-03 23:33] LABS: Calcium 8.9 mg/dL (8.7-10.4)
[2024-04-03 23:37] LABS: BUN/Creatinine Ratio 22.5 (10.0-20.0); Blood Urea Nitrogen 27 mg/dL (9-23); Glucose 97 mg/dL (74-106)
--- NOTE | 2024-04-03 23:40 | DVH ---
CT SCAN ABDOMEN AND PELVIS WITHOUT CONTRAST CLINICAL HISTORY: Diffuse abdominal pain TECHNIQUE: Helical axial images are obtained from the lung bases through the pelvis without oral cont rast. No intravenous contrast was administered. Coronal and sagittal reformatted images were generate d from thin section reconstructions. One or more of the following radiation dose reduction techniques were used for this examination: automated exposure control, adjustment of the mA and/or kV according to patient size, use of iterative reconstruction technique. COMPARISON: Correlation made to chest CT dated 03/31/2024. FINDINGS: LOWER THORAX: Imaged lung bases are grossly clear. Visualized heart is enlarged. ABDOMEN AND PELVIS: Evaluation of visceral and vascular structures is limited due to lack of contrast administration. Unenhanced liver again demonstrates heterogeneity. No discrete hepatic lesions as visualized. Gallbla dder appears contracted. The spleen, pancreas and adrenals appear grossly unremarkable. Small amount of abdominal ascites. No hydroureteronephrosis. No evidence of abdominal aortic aneurysm. No evidence of bowel obstruction. Haziness of the mesenteric fat. The appendix is not clearly delinea momo, however, no pericecal inflammatory changes noted. No free intraperitoneal air identified. No sizable bladder calculus. No destructive osseous lesions identified. IMPRESSION: Noncontrast examination. Heterogeneous appearance of the liver is relatively nonspecific but the differential diagnosis includ es congestive hepatopathy and other causes of congestive heart failure. Recommend further workup as c linically indicated. Small volume abdominal ascites and mesenteric edema suggest a congestive etiology. No definite evidence of bowel obstruction.
[2024-04-04] MEDS: IPRATROPIUM BROM 0.5 MG/2.5ML INH SOL NEB ONE (00:44)
[2024-04-04] MEDS: ALBUTEROL SULF 2.5 MG/0.5ML(0.5%) NEB SOLN NEB ONE (00:44)
[2024-04-04] MEDS: LEVALBUTEROL HCL 1.25 MG/3 ML NEB ONE (00:45)
[2024-04-04] MEDS: LEVALBUTEROL HCL 1.25 MG/3 ML NEB NEB SCH ×2 (00:45→06:00)
[2024-04-04] MEDS: DexAMETHasone INJECTION 10 MG in D5W 5% 50 ML IV ONE (01:07)
[2024-04-04 01:18] VITALS: RESP 22; O2SAT 93
[2024-04-04] MEDS: DexAMETHasone SOD PHOS 10MG/1ML VIAL INJ IV ONE (01:32)
[2024-04-04] MEDS: HYDROcodone-ACET 5/325MG TAB PO ONE (01:33)
--- NOTE | 2024-04-04 01:42 | ED.PDOC ---
HPI Comments This patient is a 49-year-old female who arrives to the ED today via EMS for evaluation of general ill feeling and shortness a breath concerns that began earlier today and continued throughout. Patient was recently seen this facility for a fall event. Patient arrives stating that she does not have any specific pain concerns although she does state she has some abdominal pain issues. Patient's O2 saturation was bounding from 80s to higher 90s at time of evaluation. Chief Complaint: Shortness of Breath Time Seen by MD: 22:34 Reviewed Notes: Nurses Notes, Copy Lathe Operator Notes Allergies: Coded Allergies: NO KNOWN ALLERGIES (Unverified , 12/04/18) Home Meds Active Scripts Atorvastatin Calcium (ATORVASTATIN CALCIUM) 20 Mg Tab, 20 MG PO HS, #30 TAB Prov:HARMAN HAMM MD 12/06/18 Aspirin (Asa) 81 Mg Ch, 81 MG PO DAILY, #30 Prov:HARMAN HAMM MD 12/06/18 Reported Medications Escitalopram Oxalate (Lexapro) 20 Mg Tab, 1 TAB PO DAILY for 90 Days, #90 03/31/24 Ferrous Sulfate (Ferosul) 325 Mg Tab, 1 TAB PO BID for 30 Days, #60 03/31/24 Sumatriptan Succinate (Sumatriptan Succinate) 50 Mg Tab, 1 TAB PO UD for 30 Days, #9 TAKE 1 TABLET BY MOUTH AT ONSET OF HEADACHE. IF NO RELIEF AFTER 2 HOURS, MAY TAKE ONE ADDITIONAL TABLET. 03/31/24 Furosemide (Furosemide) 40 Mg Tab, 1 TAB PO BID for 30 Days, #60 03/31/24 Potassium Chloride (Potassium Chloride ER) 10 Meq Tab, 1 TAB PO DAILY for 30 Days, #30 03/31/24 Sildenafil Citrate (Sildenafil Citrate) 20 Mg Tab, 1 MG PO TID for 30 Days, #90 03/31/24 Macitentan (Opsumit) 10 Mg Tab, 1 TAB PO DAILY for 30 Days, #30 03/31/24 Treprostinil Diolamine (Orenitram) 0.25 Mg Tab, MG PO UD for 30 Days, #180 03/31/24 Lisinopril (Lisinopril) 10 Mg Tab, 10 MG PO DAILY, TAB 12/05/18 Fluoxetine Hcl (FLUOXETINE HCL) 60 Mg Tab, 20 MG PO DAILY, TAB 12/05/18 Information Source: Patient, Emergency Med Personnel Mode of Arrival: EMS Severity: Moderate Timing: Hours Duration: Since onset Prehospital treatment: None Location: Substernal Quality: Burning, Tightness Onset: At Rest Cardiac Risk Factors: HTN History of: Similar pain in past Associated Signs and Symptoms: Abdominal Pain Past Medical History PAST MEDICAL HISTORY: CHF, CVA, Depression, High Lipids, HTN Surgical History: PLATEN GRINDER History: No Pertinent PLATEN GRINDER History Family History Family History: Unknown Social History Smoker: Non-Smoker Alcohol: Denies ETOH Use Drugs: Denies Drug Use Lives In: Home Constitutional: reports: fatigue, weakness; denies: chills, diaphoresis, fever, malaise, sweats, others EENTM: denies: blurred vision, double vision, ear bleeding, ear discharge, ear drainage, ear pain, ear ringing, eye pain, eye redness, hearing loss, mouth pain, mouth swelling, nasal discharge, nose bleeding, nose congestion, nose pain, photophobia, tearing, throat pain, throat swelling, voice changes, others Respiratory: reports: shortness of breath; denies: cough, hemoptysis, orthopnea, SOB at rest, SOB with excertion, stridor, wheezing, others Cardiovascular: denies: chest pain, dizzy spells, diaphoresis, Dyspnea on exertion, edema, irregular heart beat, left arm pain, lightheadedness, palpitations, PND, syncope, others Gastrointestinal: reports: abdominal pain; denies: abdomen distended, blood streaked bowels, constipated, diarrhea, dysphagia, difficulty swallowing, hematemesis, melena, nausea, poor appetite, poor fluid intake, rectal bleeding, rectal pain, vomiting, others Genitourinary: denies: abnormal vagina bleeding, burning, dyspareunia, dysuria, flank pain, frequency, hematuria, incontinence, pain, , vagina discharge, urgency, others Neurological: denies: dizziness, fainting, headache, left sided numbness, left sided weakness, numbness, paresthesia, pre-existing deficit, right sided numbness, right sided weakness, seizure, speech problems, tingling, tremors, weakness, others Musculoskeletal: denies: back pain, gout, joint pain, joint swelling, muscle pain, muscle stiffness, neck pain, others Integumetry: denies: bruises, change in color, change in hair/nails, dryness, laceration, lesions, lumps, rash, wounds, others Allergic/Immunocompromised: denies: Difficulty Healing, Frequent Infections, Hives, Itching, others Hematologic/Lymphatic: denies: anemia, blood clots, easy bleeding, easy bruising, swollen glands, others Endocrine: denies: excessive hunger, excessive sweating, excessive thirst, excessive urination, flushing, intolerance to cold, intolerance to heat, unexplained weight gain, unexplained weight loss, others Psychiatric: denies: anxiety, bipolar disorder, depression, hopeless, panic disorder, schizophrenia, sleepless, suicidal, others Physical Exam General Appearance: Moderate Distress (Patient appears to be in moderate distress at time of evaluation. Patient appears to be in poor overall health.), Normal HEENT: Normal ENT Inspection, Pharynx Normal, TMs Normal Neck: Full Range of Motion, Non-Tender, Normal, Normal Inspection Respiratory: Chest Non-Tender, No Accessory Muscle Use, Normal Breath Sounds, Wheezing (Patient displays some patchy wheezing throughout bilateral middle and upper lobes.) Cardiovascular: No Edema, No JVD, No Murmur, No Gallop, Normal Peripheral Pulses, Regular Rate/Rhythm Breast Exam: Deferred Gastrointestinal: No Organomegaly, Non Tender, No Pulsatile Mass, Normal Bowel Sounds, Soft Genitalia: Deferred Pelvic: Deferred Rectal: Deferred Extremities: No calf tenderness, Normal capillary refill, Normal inspection, Normal range of motion, Non-tender, No pedal edema Neurologic: Alert, No Motor Deficits, No Sensory Deficits Cerebellar Function: Normal Reflexes: Normal Skin: Dry, Normal Color, Warm Lymphatic: No Adenopathy Was a procedure done? Was a procedure done?: No CP Differential Dx Differential Diagnosis: A-fib, Anxiety / Panic Attack, Atrial Dysrhythmia, AV Block 1st Degree, Electrolyte Disorder, Heart Failure, Hypoxia, AK, Pulmonary Embolus, Other Differential Diagnosis: CHF X-Ray, Labs, Meds, VS Vital Signs Date Time Temp Pulse Resp B/P (MAP) Pulse Ox O2 Delivery O2 Flow Rate FiO2 04/04/24 01:18 22 93 5.0 40 04/04/24 00:45 Nasal Cannula* 5 40 04/04/24 00:45 20 93 Nasal Cannula* 5 40 04/04/24 00:00 83 04/03/24 22:39 97.5 85 18 109/67 (81) 96 04/03/24 22:36 81 Lab Test 04/03/24 22:50 Range/Units White Blood Count 5.5 4.4-10.8 10^3/uL Red Blood Count 4.07 4.0-5.20 10^6/uL Hemoglobin 11.8 L 12.2-16.2 g/dL Hematocrit 35.7 L 36.0-46.0 % Mean Corpuscular Volume 87.6 80.0-100.0 fL Mean Corpuscular Hemoglobin 28.9 28.0-32.0 pg Mean Corpuscular Hemoglobin Concent 33.0 32.0-36.0 g/dL Red Cell Distribution Width 15.9 H 11.8-14.3 % Platelet Count 120 L 140-450 10^3/uL Mean Platelet Volume 8.1 6.9-10.8 fL Neutrophils (%) (Auto) 79.3 37.0-80.0 % Lymphocytes (%) (Auto) 13.5 10.0-50.0 % Monocytes (%) (Auto) 4.6 0.0-12.0 % Eosinophils (%) (Auto) 1.9 0.0-7.0 % Basophils (%) (Auto) 0.7 0.0-2.0 % Neutrophils # (Auto) 4.4 1.6-8.6 10 ^3/uL Lymphocytes # (Auto) 0.7 0.4-5.4 10 ^3/uL Monocytes # (Auto) 0.3 0-1.3 10 ^3/uL Eosinophils # (Auto) 0.1 0-0.8 10 ^3/uL Basophils # (Auto) 0 0-0.2 10 ^3/uL Nucleated Red Blood Cells 0.0 % D-Dimer, Quantitative 0.73 H 0.0-0.49 mg/L FEU Sodium Level 142 136-145 mmol/L Potassium Level 3.7 3.5-5.1 mmol/L Chloride Level 111 H 98-107 mmol/L Carbon Dioxide Level 26 20-31 mmol/L Anion Gap 5 5-15 Blood Urea Nitrogen 27 H 9-23 mg/dL Creatinine 1.20 H 0.550-1.02 mg/dL Glomerular Filtration Rate Calc 55 >90 mL/min BUN/Creatinine Ratio 22.5 H 10.0-20.0 Serum Glucose 97 74-106 mg/dL Calcium Level 8.9 8.7-10.4 mg/dL B-Type Natriuretic Peptide 389.04 0-100 pg/mL Current Medications Medications (Trade) Dose Ordered Sig/Abrahan Route Start Time Stop Time Status Last Admin Acetaminophen/ Hydrocodone Bitart ([place] 5/325MG Tab) 1 tab ONCE ONCE PO 04/03/24 22:45 04/03/24 22:46 DC 04/04/24 01:33 Levalbuterol HCl (Xopenex Medneb) 1.25 mg Q6HR NEB 04/04/24 06:00 04/04/24 01:24 DC 04/04/24 00:45 Dexamethasone Sodium Phosphate (Decadron Injection) 10 mg ONCE ONCE IV 04/04/24 01:15 04/04/24 01:16 DC 04/04/24 01:32 X-Ray, Labs, Meds, VS Comment All studies performed the ED today were evaluated by me personally. Patient's laboratories revealed a anemia, thrombocytopenia, but appears to be acute on probable chronic renal injury, acute CHF exacerbation and elevated D-dimer. Patient was started empirically on Lovenox as she will require a V/Q scan tomorrow to assess the PE formation. Patient's EKG returned with a sinus rhythm with a rate of 81. Biatrial enlargement with RVH and secondary repolarization abnormalities. VA interval was 178 and QT interval was 402. Patient will require a cardiac consult. Imaging studies were reviewed by me personally and chest x-ray revealed a cardiomegaly with pulmonary vascular congestion, reflective of her CHF concerns. CT of abdomen and pelvis showed a possible congestive hepatopathy related to her CHF. Some mild abdominal ascites and mesenteric edema was noted. Additional concerns were the patient required 5 L of oxygen to maintain an O2 saturation above 92. Patient will be admitted for acute respiratory distress as well. Patient is a choice patient and therefore, I discussed the patient presentation as well as laboratory and imaging results with provider Lisa Barrett. She agreed to admit the patient. Time of 1ST Reevaluation: 01:38 Reevaluation 1ST: Improved Consultation: PCP, Cardiology, Pulmonary Patient Education/Counseling: Diagnosis, Treatment Family Education/Counseling: Diagnosis, Treatment Departure 1 Departure Time of Disposition: 01:38 Impression: Primary Impression: Acute respiratory distress Additional Impressions: Acute exacerbation of CHF (congestive heart failure) Acute renal injury Elevated d-dimer Anemia Thrombocytopenia Disposition: ADMITTED INPATIENT Condition: Fair Discharged With: Self, Relative Critical Care Note Critical Care Time?: Yes (45 min-critical care time only) Critical care comment: Due to the high probability of a clinically significant and possibly life- threatening deterioration, this patient required my highest level of preparedness to intervene emergently and therefore, I personally provided 45 minutes of critical care time exclusive of time spent on separate billable procedures. This critical care time includes, but is not limited to, obtaining additional history, examinations of the patient, evaluation of pulse oximetry, ordering and reviewing of studies as well as arranging urgent treatment with the development of a management plan and evaluation of the patient's response to treatment with frequent reassessments and discussions with other providers. Stability Stability form required: No Heart Score Heart Score: Heart Score Response (Comments) Value History Slightly Suspicious 0 EKG Repolarization Disturb 1 Age 45-64 1 Risk Factors 1 or 2 risk factors 1 Troponin Normal limit 0 Total 3 FABIAN VIZCAINO PAC Apr 04, 2024 01:42
[2024-04-04] MEDS: ENOXAPARIN SOD 40 MG/0.4 ML SYRINGE SC ONE (02:09)
[2024-04-04] MEDS: FUROSEMIDE 40 MG/4 ML VIAL IV ONE (02:10)
[2024-04-04] MEDS ORDERED: MELATONIN 5 MG TAB PO PRN (02:15)
[2024-04-04] MEDS ORDERED: ACETAMINOPHEN 325 MG TAB PO PRN (02:15)
--- NOTE | 2024-04-04 02:18 | DVHHP2 ---
Admitting Diagnosis: acute CHF exacerbation, hypoxia History of Present Illness History Source: Patient Exam Limitations: No limitations HPI Mrs. Elinor Franco is a 49-year-old female with a history of pulmonary hypertension, CHD, CVA, depression, hyperlipidemia, who presents for evaluation of general ill feeling and shortness a breath concerns that began earlier yesterday and continued throughout. Patient was recently seen this facility for a fall event. Patient states that she does not have any specific pain concerns although she does state she has some abdominal discomfort due to distension. Patient CT abdomen and pelvis wo contrast resulted : Noncontrast examination. Heterogeneous appearance of the liver is relatively nonspecific but the differential diagnosis includes congestive hepatopathy and other causes of congestive heart failure. Recommend further workup as clinically indicated. Small volume abdominal ascites and mesenteric edema suggest a congestive etiology. No definite evidence of bowel obstruction. Patient Chest x ray with cardiomegaly and vascular congestion. Patient denies chest pain, nausea, vomiting, dizziness, headaches, diarrhea, constipation, dysuria, hematuria. Patient admitted for further evaluation. Home Meds Active Scripts Atorvastatin Calcium (ATORVASTATIN CALCIUM) 20 Mg Tab, 20 MG PO HS, #30 TAB Prov:HARMAN HAMM MD 12/06/18 Aspirin (Asa) 81 Mg Ch, 81 MG PO DAILY, #30 Prov:HARMAN HAMM MD 12/06/18 Reported Medications Treprostinil Diolamine (Orenitram) 5 Mg Tab, 5 MG PO TIDWMEALS, TAB 04/04/24 Treprostinil Diolamine (Orenitram) 0.25 Mg Tab, 0.25 MG PO BIDWM, TAB 04/04/24 Treprostinil Diolamine (Orenitram) 1 Mg Tab, 1 MG PO TID, TAB 04/04/24 Escitalopram Oxalate (Lexapro) 20 Mg Tab, 1 TAB PO DAILY for 90 Days, #90 03/31/24 Ferrous Sulfate (Ferosul) 325 Mg Tab, 1 TAB PO BID for 30 Days, #60 03/31/24 Sumatriptan Succinate (Sumatriptan Succinate) 50 Mg Tab, 1 TAB PO UD for 30 Days, #9 TAKE 1 TABLET BY MOUTH AT ONSET OF HEADACHE. IF NO RELIEF AFTER 2 HOURS, MAY TAKE ONE ADDITIONAL TABLET. 03/31/24 Furosemide (Furosemide) 40 Mg Tab, 1 TAB PO BID for 30 Days, #60 03/31/24 Potassium Chloride (Potassium Chloride ER) 10 Meq Tab, 1 TAB PO DAILY for 30 Days, #30 03/31/24 Sildenafil Citrate (Sildenafil Citrate) 20 Mg Tab, 1 MG PO TID for 30 Days, #90 03/31/24 Macitentan (Opsumit) 10 Mg Tab, 1 TAB PO DAILY for 30 Days, #30 03/31/24 Treprostinil Diolamine (Orenitram) 0.25 Mg Tab, MG PO UD for 30 Days, #180 03/31/24 Lisinopril (Lisinopril) 10 Mg Tab, 10 MG PO DAILY, TAB 12/05/18 Fluoxetine Hcl (FLUOXETINE HCL) 60 Mg Tab, 20 MG PO DAILY, TAB 12/05/18 Past Medical History Cardiac: CHF, HTN, Hyperlipidemia Pulmonary: No pertinent Hx Central Nervous System: CVA GI: No pertinent Hx Hemotology/Oncology: No pertinent Hx Hepatobiliary: No pertinent Hx Psychiatric: Depression Musculoskeletal: No pertinent Hx Rheumotologic: No pertinent Hx Infectious Disease: No peritnent Hx ENT: No pertinent Hx Renal/: No pertinent Hx Endocrine: No pertinent Hx Dermatology: No pertinent Hx Others pulmonary hypertension Patient Family History: Cerebrovascular accident (CVA) G8 FATHER Hypertension G8 MOTHER G8 FATHER G8 SISTER Alocohol: None Drugs: None Lives with: With family Domestic Violence: Neg Review of Systems Constitutional: No symptom reported Ears, Nose, & Throat: No symptom reported Eyes: No symptom reported Pulmonary/Respiratory: Dyspnea Cardiovascular: No symptom reported Gastrointestinal: Abdominal Pain Genitourinary: No symptom reported Musculoskeletal: No symptom reported Skin: No symptom reported Psychiatric: No symptom reported Endocrine: No symptom reported Hemotologic/Lymphatic: No symptom reported H&P Exam Vital Signs Vital Signs Date Time Temp Pulse Resp B/P (MAP) Pulse Ox O2 Delivery O2 Flow Rate FiO2 04/04/24 02:10 99/58 04/04/24 01:18 22 93 5.0 40 04/04/24 00:45 Nasal Cannula* 04/04/24 00:00 83 04/03/24 22:39 97.5 General Appeara: Well developed, Normal Appearance, Thin Head Exam: Normal inspection Neck Exam: Normal inspection, Non-tender, Normal alignment Eye Exam: bilateral eye Normal inspection, bilateral eye PERRL, bilateral eye EOMI Ear Exam: bilateral ear Auricle normal Nasal Exam: Normal inspection Mouth: Normal Inspection Pulmonary/Respiratory: Normal inspection, Normal breath sounds, Chest non- tender, Lungs clear Cardiovascular/Chest: Normal inspection, Regular rate, Normal Rhythm Peripheral Pulses: 2+ dorsalis pedis (R), 2+ dorsalis pedis (L), 2+ Radial (R), 2+ Radial (L) Abdominal Exam: Normal bowel sounds, Soft, No tenderness Back Exam: Normal inspection Neuro/Mental St: Alert, Oriented Appearance: Appropriate appearance, Appropriate insight Eye contact/ Speech: Cooperative, Good eye contact, Normal speech Thoughts/Psych: Normal thought pattern Skin Exam: Normal inspection, Normal color, Warm/dry Labs/Xrays Labs Test 04/03/24 22:50 Range/Units White Blood Count 5.5 4.4-10.8 10^3/uL Red Blood Count 4.07 4.0-5.20 10^6/uL Hemoglobin 11.8 L 12.2-16.2 g/dL Hematocrit 35.7 L 36.0-46.0 % Mean Corpuscular Volume 87.6 80.0-100.0 fL Mean Corpuscular Hemoglobin 28.9 28.0-32.0 pg Mean Corpuscular Hemoglobin Concent 33.0 32.0-36.0 g/dL Red Cell Distribution Width 15.9 H 11.8-14.3 % Platelet Count 120 L 140-450 10^3/uL Mean Platelet Volume 8.1 6.9-10.8 fL Neutrophils (%) (Auto) 79.3 37.0-80.0 % Lymphocytes (%) (Auto) 13.5 10.0-50.0 % Monocytes (%) (Auto) 4.6 0.0-12.0 % Eosinophils (%) (Auto) 1.9 0.0-7.0 % Basophils (%) (Auto) 0.7 0.0-2.0 % Neutrophils # (Auto) 4.4 1.6-8.6 10 ^3/uL Lymphocytes # (Auto) 0.7 0.4-5.4 10 ^3/uL Monocytes # (Auto) 0.3 0-1.3 10 ^3/uL Eosinophils # (Auto) 0.1 0-0.8 10 ^3/uL Basophils # (Auto) 0 0-0.2 10 ^3/uL Nucleated Red Blood Cells 0.0 % D-Dimer, Quantitative 0.73 H 0.0-0.49 mg/L FEU Sodium Level 142 136-145 mmol/L Potassium Level 3.7 3.5-5.1 mmol/L Chloride Level 111 H 98-107 mmol/L Carbon Dioxide Level 26 20-31 mmol/L Anion Gap 5 5-15 Blood Urea Nitrogen 27 H 9-23 mg/dL Creatinine 1.20 H 0.550-1.02 mg/dL Glomerular Filtration Rate Calc 55 >90 mL/min BUN/Creatinine Ratio 22.5 H 10.0-20.0 Serum Glucose 97 74-106 mg/dL Calcium Level 8.9 8.7-10.4 mg/dL B-Type Natriuretic Peptide 389.04 0-100 pg/mL Assessment/Plan Problem List: (1) Acute exacerbation of CHF (congestive heart failure) (2) Acute respiratory distress (3) Elevated d-dimer Plan 49 yo female with known history of pulmonary hypertension, CHF, CVA, hyperlipidemia, depression presents with shortness of breath and abdominal discomfort. Patient found to have 1. Acute CHF exacerbation 2. Hypoxia 3. Acute Kidney injury 4. Elevated d dimer 5. Thrombocytopenia Admit Telemetry Cardiology consultation, 2D echocardiogram IV Diuresis Lasix Fluid restriction, strict I&O DVT ppx Lovenox GI ppx Pepcid VQ scan Discussed all above with patient who verbalizes agreement and understanding of care plan. All questions were answered. Discussed assessment and care plan with supervising MD. Plan discussed with: Patient, Other Code Visit Code Visit Total Time (mins): 45 Additional Comments Additional Comments Additional Comments 49-year-old female with a known history of congestive heart failure, pulmonary hypertension, dyslipidemia, anxiety disorder initially presented to the hospital with a shortness of breaths dyspnea and generalized ill feeling found to have 1. Acute hypoxic respiratory failure secondary to suspected acute exacerbation of pulmonary hypertension 2. Acute exacerbation of pulmonary hypertension 3. Suspected acute CHF exacerbation unspecified 4. Recent history of fall with a black eye 5. Anxiety disorder -continue med nebs, IV diuretics, follow up V/Q scan to rule out PE for elevated D-dimer. -pulmonary consultation KWAME JUSTICE Apr 04, 2024 02:18 ZAHIDA HEATH MD Apr 04, 2024 16:33
[2024-04-04 02:31] LABS: INR 1.05 (0.9-1.15); Prothrombin Time 11.1 sec (9.3-11.8)
[2024-04-04 03:29] LABS: Urine Bacteria None Seen /hpf (None Seen)
[2024-04-04 03:34] LABS: Urine Blood Negative /uL (Negative); Urine Clarity Clear (Clear); Urine Color STRAW (Yellow); Urine Mucus FEW (None Seen); Urine Protein, UAD Negative (Negative); Urine Urobilinogen Normal (Negative); Urine WBC 1 /hpf (0 - 5)
[2024-04-04] MEDS: ENOXAPARIN SOD 30 MG/0.3 ML SYRINGE SC ONE (05:22)
[2024-04-04 06:03] LABS: Basophils # (auto) 0 10 ^3/uL (0-0.2); Basophils % (auto) 0.1 % (0.0-2.0); Eosinophils # (auto) 0 10 ^3/uL (0-0.8); Eosinophils % (auto) 0.4 % (0.0-7.0); Hemoglobin 11.6 g/dL (12.2-16.2); Lymphocytes # (auto) 0.3 10 ^3/uL (0.4-5.4); Lymphocytes % (auto) 5.2 % (10.0-50.0); Mean Corpuscular Hemoglobin 28.2 pg (28.0-32.0); Mean Corpuscular Hgb Conc. 32.2 g/dL (32.0-36.0); Mean Corpuscular Volume 87.6 fL (80.0-100.0); Monocytes # (auto) 0.1 10 ^3/uL (0-1.3); Monocytes % (auto) 1.5 % (0.0-12.0); Neutrophils % (auto) 92.8 % (37.0-80.0); Platelet Count (auto) 121 10^3/uL (140-450); Red Blood Cells 4.11 10^6/uL (4.0-5.20); Red Cell Distribution Width 15.8 % (11.8-14.3); White Blood Cell 5.4 10^3/uL (4.4-10.8)
[2024-04-04 06:06] LABS: Chloride 109 mmol/L (98-107)
[2024-04-04 06:07] LABS: Anion Gap 9 (5-15); Carbon Dioxide 23 mmol/L (20-31); Sodium 141 mmol/L (136-145)
[2024-04-04 06:08] LABS: Calcium 9.1 mg/dL (8.7-10.4)
[2024-04-04 06:13] LABS: BUN/Creatinine Ratio 22.7 (10.0-20.0); Blood Urea Nitrogen 27 mg/dL (9-23); Glucose 112 mg/dL (74-106)
[2024-04-04 07:30] VITALS: PULSE 81; RESP 16; O2SAT 93
[2024-04-04] MEDS: HYDROcodone-ACET 5/325MG TAB PO PRN (09:55)
[2024-04-04] MEDS ORDERED: ENOXAPARIN SOD 40 MG/0.4 ML SYRINGE SC SCH (10:00)
[2024-04-04] MEDS ORDERED: TREP1TAB PO (10:04)
[2024-04-04] MEDS ORDERED: TREP1TAB3 PO (10:04)
[2024-04-04] MEDS ORDERED: TREP5TAB PO (10:04)
[2024-04-04] MEDS: FAMOTIDINE 20 MG TAB PO SCH (10:22)
[2024-04-04] MEDS: FUROSEMIDE 40 MG/4 ML VIAL IV SCH (10:22)
[2024-04-04 18:46] VITALS: PULSE 90; RESP 18; O2SAT 93
[2024-04-04 18:54] VITALS: PULSE 80; RESP 18; O2SAT 97
--- NOTE | 2024-04-04 19:45 | DVHINCON2 ---
Date of service: Apr 04, 2024 Referring Physician Lisa Barrett NP Reason for Consultation Acute hypoxic respiratory failure History of Present Illness A 49-year-old woman with past medical history of pulmonary hypertension, CHF, CVA, hypertension, hyperlipidemia and depression, who presented to the ED on 04/03/24 for evaluation of general ill feeling and shortness a breath concerns that began earlier yesterday and continued throughout. Patient was recently seen this facility for a fall event. Patient states that she does not have any specific pain concerns although she does state she has some abdominal discomfort due to distension. Patient CT abdomen and pelvis wo contrast resulted : Noncontrast examination. Heterogeneous appearance of the liver is relatively nonspecific but the differential diagnosis includes congestive hepatopathy and other causes of congestive heart failure. Recommend further workup as clinically indicated. Small volume abdominal ascites and mesenteric edema suggest a congestive etiology. No definite evidence of bowel obstruction. Patient Chest x ray with cardiomegaly and vascular congestion. Patient denies chest pain, nausea, vomiting, dizziness, headaches, diarrhea, constipation, dysuria, hematuria. Patient was admitted for further care and pulmonary consultation is requested for evaluation and management of acute hypoxic respiratory failure Review of Systems: 14-point review of systems negative unless otherwise noted above. Past Medical History: Pulmonary hypertension, CHF, CVA, hypertension, hyperlipidemia and depression Past Surgical History: None. Medications: Reviewed. Allergies: No known drug allergies. Family History: Mother w/ hypertension Father w/ hypertension and CVA. Sister w/ hypertension Social History: Nonsmoker. No alcohol or illicit drug use. Family History: Cerebrovascular accident (CVA) G8 FATHER Hypertension G8 MOTHER G8 FATHER G8 SISTER Allergies: Coded Allergies: NO KNOWN ALLERGIES (Unverified , 12/04/18) Home Meds Active Scripts Atorvastatin Calcium (ATORVASTATIN CALCIUM) 20 Mg Tab, 20 MG PO HS, #30 TAB Prov:HARMAN HAMM MD 12/06/18 Aspirin (Asa) 81 Mg Ch, 81 MG PO DAILY, #30 Prov:HARMAN HAMM MD 12/06/18 Reported Medications Treprostinil Diolamine (Orenitram) 5 Mg Tab, 5 MG PO TIDWMEALS, TAB 04/04/24 Treprostinil Diolamine (Orenitram) 0.25 Mg Tab, 0.25 MG PO BIDWM, TAB 04/04/24 Treprostinil Diolamine (Orenitram) 1 Mg Tab, 1 MG PO TID, TAB 04/04/24 Escitalopram Oxalate (Lexapro) 20 Mg Tab, 1 TAB PO DAILY for 90 Days, #90 03/31/24 Ferrous Sulfate (Ferosul) 325 Mg Tab, 1 TAB PO BID for 30 Days, #60 03/31/24 Sumatriptan Succinate (Sumatriptan Succinate) 50 Mg Tab, 1 TAB PO UD for 30 Days, #9 TAKE 1 TABLET BY MOUTH AT ONSET OF HEADACHE. IF NO RELIEF AFTER 2 HOURS, MAY TAKE ONE ADDITIONAL TABLET. 03/31/24 Furosemide (Furosemide) 40 Mg Tab, 1 TAB PO BID for 30 Days, #60 03/31/24 Potassium Chloride (Potassium Chloride ER) 10 Meq Tab, 1 TAB PO DAILY for 30 Days, #30 03/31/24 Sildenafil Citrate (Sildenafil Citrate) 20 Mg Tab, 1 MG PO TID for 30 Days, #90 03/31/24 Macitentan (Opsumit) 10 Mg Tab, 1 TAB PO DAILY for 30 Days, #30 03/31/24 Treprostinil Diolamine (Orenitram) 0.25 Mg Tab, MG PO UD for 30 Days, #180 03/31/24 Lisinopril (Lisinopril) 10 Mg Tab, 10 MG PO DAILY, TAB 12/05/18 Fluoxetine Hcl (FLUOXETINE HCL) 60 Mg Tab, 20 MG PO DAILY, TAB 12/05/18 Current Medications Current Medications Medications (Trade) Dose Ordered Sig/Abrahan Route PRN Reason Start Time Stop Time Status Last Admin Levalbuterol HCl (Xopenex Medneb) 1.25 mg Q6HR NEB 04/04/24 06:00 04/04/24 01:24 DC 04/04/24 00:45 Levalbuterol HCl (Xopenex Medneb) 1.25 mg Q6HR NEB 04/04/24 06:00 04/04/24 18:46 Ondansetron HCl (Zofran) 4 mg Q6HPRN PRN IV NAUSEA / VOMITING 04/04/24 02:15 Furosemide (Lasix Injection) 40 mg BID IV 04/04/24 10:00 04/04/24 10:22 Melatonin (Melatonin) 5 mg ONCE@2200 PRN PO FOR INSOMNIA 04/04/24 02:15 Famotidine (Pepcid Tablet) 20 mg DAILY PO 04/04/24 10:00 04/04/24 10:22 Acetaminophen/ Hydrocodone Bitart ([place] 5/325MG Tab) 1 tab Q6HPRN PRN PO PAIN SCALE 1 THRU 6 04/04/24 02:15 04/04/24 18:40 Acetaminophen (Tylenol Tablet) 650 mg Q6HPRN PRN PO TEMP GREATER THAN 100.4 04/04/24 02:15 Enoxaparin Sodium (Lovenox) 40 mg DAILY SC 04/04/24 10:00 04/04/24 02:24 DC Enoxaparin Sodium (Lovenox) 70 mg HS SC 04/05/24 22:00 Vital Signs Vital Signs Date Time Temp Pulse Resp B/P (MAP) Pulse Ox O2 Delivery O2 Flow Rate FiO2 04/04/24 18:54 80 18 97 04/04/24 18:08 Nasal Cannula* 4 36 04/04/24 17:38 98.2 105/52 (69) 98.2 Physical Exam Gen.: Patient lying in bed in no apparent distress. On supplemental oxygen. Head: Normocephalic, atraumatic. Eyes: EOMI/PERRLA. Ears: Normal hearing. Normal anatomy. Neck/trachea: Trachea midline, supple. Nose: Normal external anatomy. Mouth: Moist mucous membranes. Chest: Decreased air entry bilaterally. No wheezing or rhonchi. Cardiovascular: Positive S1, positive S2. Regular rate and rhythm. Abdomen: Positive bowel sounds in all 4 quadrants. Soft, non-tender, non- distended. : Deferred. Rectal: Deferred. Skin: Warm, dry. Intact. Extremities: 2+ radial pulses bilaterally. No lower extremity edema. Neuro: Awake, alert, oriented x3. No gross motor or sensory deficits. Cranial nerves II through XII intact. Gait not assessed. Labs/Diagnostic Data Labs Test 04/04/24 04:59 04/04/24 03:17 04/03/24 22:50 Range/Units White Blood Count 5.4 4.4-10.8 10^3/uL Red Blood Count 4.11 4.0-5.20 10^6/uL Hemoglobin 11.6 L 12.2-16.2 g/dL Hematocrit 36.0 36.0-46.0 % Mean Corpuscular Volume 87.6 80.0-100.0 fL Mean Corpuscular Hemoglobin 28.2 28.0-32.0 pg Mean Corpuscular Hemoglobin Concent 32.2 32.0-36.0 g/dL Red Cell Distribution Width 15.8 H 11.8-14.3 % Platelet Count 121 L 140-450 10^3/uL Mean Platelet Volume 10.2 6.9-10.8 fL Neutrophils (%) (Auto) 92.8 H 37.0-80.0 % Lymphocytes (%) (Auto) 5.2 L 10.0-50.0 % Monocytes (%) (Auto) 1.5 0.0-12.0 % Eosinophils (%) (Auto) 0.4 0.0-7.0 % Basophils (%) (Auto) 0.1 0.0-2.0 % Neutrophils # (Auto) 5.0 1.6-8.6 10 ^3/uL Lymphocytes # (Auto) 0.3 L 0.4-5.4 10 ^3/uL Monocytes # (Auto) 0.1 0-1.3 10 ^3/uL Eosinophils # (Auto) 0 0-0.8 10 ^3/uL Basophils # (Auto) 0 0-0.2 10 ^3/uL Nucleated Red Blood Cells 0.0 % Sodium Level 141 136-145 mmol/L Potassium Level 4.0 3.5-5.1 mmol/L Chloride Level 109 H 98-107 mmol/L Carbon Dioxide Level 23 20-31 mmol/L Anion Gap 9 5-15 Blood Urea Nitrogen 27 H 9-23 mg/dL Creatinine 1.19 H 0.550-1.02 mg/dL Glomerular Filtration Rate Calc 56 >90 mL/min BUN/Creatinine Ratio 22.7 H 10.0-20.0 Serum Glucose 112 H 74-106 mg/dL Calcium Level 9.1 8.7-10.4 mg/dL Urine Color Straw Yellow Urine Clarity Clear Clear Urine pH 6.0 5.0-9.0 Urine Specific [place] 1.010 1.001-1.035 Urine Protein Negative Negative Urine Ketones Negative Negative Urine Blood Negative Negative /uL Urine Nitrite Negative Negative Urine Bilirubin Negative Negative Urine Urobilinogen Normal Negative mg/dL Urine Leukocyte Esterase Negative Negative /uL Urine RBC 1 0 - 4 /hpf Urine WBC 1 0 - 5 /hpf Urine Squamous Epithelial Cells Few <5 /hpf Urine Bacteria None seen None Seen /hpf Urine Mucus Few None Seen Urine Glucose Normal Normal mg/dL Prothrombin Time 11.1 9.3-11.8 sec Prothrombin Time INR 1.05 0.9-1.15 D-Dimer, Quantitative 0.73 H 0.0-0.49 mg/L FEU B-Type Natriuretic Peptide 389.04 0-100 pg/mL Assessment Impression: Acute hypoxic respiratory failure Acute CHF exacerbation Acute kidney injury Elevated D-dimer Thrombocytopenia Plan: Plan for V/q scan Supplemental oxygen 4 LPM NC Titrate to keep O2 sats above 92%. Taper O2 as tolerated. Continue bronchodilators. Steroids Incentive spirometry F/u Cardiology recommendations F/u Nephrology recommendations Monitor platelets Diurese to euvolemia. On Lasix 40mg IV BID Monitor renal function. Monitor electrolytes. Supplement as necessary. Monitor ins and outs. GI prophylaxis - Pepcid DVT prophylaxis - Lovenox Prognosis: Poor given patient's multiple co-morbidities. Rest of plan per hospitalist and other consultants. Thank you Lisa Barrett NP, for allowing me to participate in this patient's care. Further recommendations will depend on the patient's clinical course. Please do not hesitate to contact me if you have any questions or concerns. This medical document was created using an electronic medical record system with [employer] dictation system. Although these documentations are being carefully reviewed, there may still be some phonetic and typographical changes. The errors are purely typographical, due to imperfection on the software program, and do not reflect any compromise in the patient's medical care. Plan discussed with: Patient, Other (RN, BABAK Barrett) SOYN RAMEY MD Apr 04, 2024 19:45
[2024-04-04 20:00] VITALS: PULSE 93
[2024-04-04 21:00] VITALS: BP 96/62; PULSE 86; RESP 19; TEMP 98; O2SAT 94
[2024-04-05] VITALS (12 sets, daily range): BP systolic 99–115; BP diastolic 61–73; PULSE 64–92; RESP 17–19; TEMP 97.4–98; O2SAT 94–99
[2024-04-05 06:08] LABS: Basophils # (auto) 0 10 ^3/uL (0-0.2); Basophils % (auto) 0.3 % (0.0-2.0); Eosinophils # (auto) 0 10 ^3/uL (0-0.8); Eosinophils % (auto) 0.9 % (0.0-7.0); Hematocrit 34.6 % (36.0-46.0); Hemoglobin 11.1 g/dL (12.2-16.2); Lymphocytes # (auto) 0.8 10 ^3/uL (0.4-5.4); Lymphocytes % (auto) 16.7 % (10.0-50.0); Mean Corpuscular Hemoglobin 28.2 pg (28.0-32.0); Mean Corpuscular Hgb Conc. 32.2 g/dL (32.0-36.0); Mean Corpuscular Volume 87.7 fL (80.0-100.0); Monocytes # (auto) 0.3 10 ^3/uL (0-1.3); Monocytes % (auto) 5.5 % (0.0-12.0); Neutrophils # (auto) 3.8 10 ^3/uL (1.6-8.6); Neutrophils % (auto) 76.6 % (37.0-80.0); Platelet Count (auto) 112 10^3/uL (140-450); Red Blood Cells 3.94 10^6/uL (4.0-5.20)
[2024-04-05 06:20] LABS: Chloride 107 mmol/L (98-107); Potassium 3.8 mmol/L (3.5-5.1); Sodium 142 mmol/L (136-145)
[2024-04-05 06:21] LABS: Anion Gap 6 (5-15); Calcium 9.2 mg/dL (8.7-10.4); Carbon Dioxide 29 mmol/L (20-31)
[2024-04-05 06:26] LABS: BUN/Creatinine Ratio 21.4 (10.0-20.0); Blood Urea Nitrogen 27 mg/dL (9-23); Glucose 86 mg/dL (74-106)
[2024-04-05] MEDS: SILDENAFIL CITRATE 20 MG TAB PO SCH (15:44)
--- NOTE | 2024-04-05 15:57 | DVHPN2 ---
Subjective Overnight events noted. Patient feeling much better. 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 Medications Current Medications Medications Dose Ordered Sig/Abrahan Route Start Time Stop Time Status Last Admin Dose Admin Levalbuterol HCl 1.25 mg Q6HR NEB 04/04/24 06:00 04/04/24 18:46 1.25 MG Ondansetron HCl 4 mg Q6HPRN PRN IV 04/04/24 02:15 Furosemide 40 mg BID IV 04/04/24 10:00 04/05/24 10:27 40 MG Melatonin 5 mg ONCE@2200 PRN PO 04/04/24 02:15 Famotidine 20 mg DAILY PO 04/04/24 10:00 04/05/24 10:25 20 MG Acetaminophen/ Hydrocodone Bitart 1 tab Q6HPRN PRN PO 04/04/24 02:15 04/05/24 10:34 1 TAB Acetaminophen 650 mg Q6HPRN PRN PO 04/04/24 02:15 Enoxaparin Sodium 70 mg HS SC 04/05/24 22:00 Sildenafil Citrate 20 mg TID PO 04/05/24 14:00 04/05/24 15:44 20 MG Patient Own Medication 1 tab DAILY PO 04/06/24 10:00 UNV Patient Own Medication 0.25 mg BIDWM PO 04/05/24 18:00 UNV Patient Own Medication 1 mg TID PO 04/05/24 14:00 UNV Patient Own Medication 5 mg TIDWMEALS PO 04/05/24 18:00 UNV Laboratory Results Laboratory Tests 04/05/24 05:15 Chemistry Test 04/05/24 05:15 Calcium Level 9.2 mg/dL (8.7-10.4) Urinalysis Test 04/04/24 03:17 Urine Color Straw (Yellow) Urine Clarity Clear (Clear) Urine pH 6.0 (5.0-9.0) Urine Specific [place] 1.010 (1.001-1.035) Urine Protein Negative (Negative) Urine Ketones Negative (Negative) Urine Blood Negative /uL (Negative) Urine Nitrite Negative (Negative) Urine Bilirubin Negative (Negative) Urine Urobilinogen Normal mg/dL (Negative) Urine Leukocyte Esterase Negative /uL (Negative) Urine RBC 1 /hpf (0 - 4) Urine WBC 1 /hpf (0 - 5) Urine Squamous Epithelial Cells Few /hpf (<5) Urine Bacteria None seen /hpf (None Seen) Urine Mucus Few (None Seen) Urine Glucose Normal mg/dL (Normal) Microbiology Microbiology Date/Time Source Procedure Growth Status 04/04/24 18:30 Nose MRSA Screen - Final Complete Assessment/Plan Assessment/Plan 49-year-old female with a known history of congestive heart failure, pulmonary hypertension, dyslipidemia, anxiety disorder initially presented to the hospital with a shortness of breaths dyspnea and generalized ill feeling found to have 1. Acute hypoxic respiratory failure secondary to suspected acute exacerbation of pulmonary hypertension 2. Acute exacerbation of pulmonary hypertension 3. Suspected acute CHF exacerbation unspecified 4. Recent history of fall with a black eye 5. Anxiety disorder -continue med nebs, O2 supplementation, IV Solu-Medrol -pulmonary follow up. Plan discussed with: Patient My Orders Orders - ZAHIDA HEATH MD Procedure Category Date Status Time *Consult CONS 04/04/24 Transmitted / 16:28 Date of Service: Apr 05, 2024 Billing Provider: ZAHIDA HEATH MD Common Visit Codes: NOT BILLABLE ZAHIDA HEATH MD Apr 05, 2024 15:57
--- NOTE | 2024-04-05 18:23 | DVHPN2 ---
Progress Note - Dictate Date Seen: Apr 05, 2024 Medical Necessity Reason Pt with a Central, PICC or Fol: No Subjective Patient seen and examined at bedside. Remains on supplemental oxygen Overnight events reviewed. vital signs Vital Sign Date Time Temp Pulse Resp B/P (MAP) Pulse Ox O2 Delivery O2 Flow Rate FiO2 04/05/24 16:47 97.7 81 18 99/65 (76) 94 97.7 04/05/24 11:16 Nasal Cannula* 3 32 Total Intake and Output 04/04/24 04/04/24 04/05/24 15:00 23:00 07:00 Intake Total 300 ml Balance 300 ml medications Current Medications Medications Dose Ordered Sig/Abrahan Route Start Time Stop Time Status Last Admin Dose Admin Levalbuterol HCl 1.25 mg Q6HR NEB 04/04/24 06:00 04/04/24 18:46 1.25 MG Ondansetron HCl 4 mg Q6HPRN PRN IV 04/04/24 02:15 Furosemide 40 mg BID IV 04/04/24 10:00 04/05/24 10:27 40 MG Melatonin 5 mg ONCE@2200 PRN PO 04/04/24 02:15 Famotidine 20 mg DAILY PO 04/04/24 10:00 04/05/24 10:25 20 MG Acetaminophen/ Hydrocodone Bitart 1 tab Q6HPRN PRN PO 04/04/24 02:15 04/05/24 10:34 1 TAB Acetaminophen 650 mg Q6HPRN PRN PO 04/04/24 02:15 Enoxaparin Sodium 70 mg HS SC 04/05/24 22:00 Sildenafil Citrate 20 mg TID PO 04/05/24 14:00 04/05/24 15:44 20 MG Patient Own Medication 1 tab DAILY PO 04/06/24 10:00 Patient Own Medication 0.5 mg TIDWMEALS PO 04/05/24 18:00 Patient Own Medication 1 mg TIDWMEALS PO 04/05/24 18:00 Patient Own Medication 5 mg TIDWMEALS PO 04/05/24 18:00 objective Gen.: Patient lying in bed in no apparent distress. On supplemental oxygen. Head: Normocephalic, atraumatic. Eyes: EOMI/PERRLA. Ears: Normal hearing. Normal anatomy. Neck/trachea: Trachea midline, supple. Nose: Normal external anatomy. Mouth: Moist mucous membranes. Chest: Decreased air entry bilaterally. No wheezing or rhonchi. Cardiovascular: Positive S1, positive S2. Regular rate and rhythm. Abdomen: Positive bowel sounds in all 4 quadrants. Soft, non-tender, non- distended. : Deferred. Rectal: Deferred. Skin: Warm, dry. Intact. Extremities: 2+ radial pulses bilaterally. No lower extremity edema. Neuro: Awake, alert, oriented x3. No gross motor or sensory deficits. Cranial nerves II through XII intact. Gait not assessed. laboratory and microbiology Laboratory Tests 04/05/24 05:15 Test 04/05/24 05:15 Range/Units Serum Glucose 86 74-106 mg/dL Assessment/Plan Impression: Acute on chronic hypoxic respiratory failure Pulmonary hypertension, RVSP 83 mmHg Acute CHF exacerbation Acute kidney injury Elevated D-dimer Thrombocytopenia Anxiety disorder Events: Remains on supplemental oxygen 4 LPM NC Taper O2 as tolerated. Diurese to euvolemia Monitor renal function. Monitor electrolytes. Supplement as necessary. Monitor ins and outs. Resume sildenafil 20 mg p.o. TID, Orenitram 6.5 mg p.o. QD, and Opsumit 10 mg p.o. QD for pulmonary HTN Labs and imaging reviewed. Rest of plan as noted below. Plan: Supplemental oxygen 4 LPM NC Titrate to keep O2 sats above 92%. Taper O2 as tolerated. Bronchodilators. Steroids Incentive spirometry F/u Cardiology recommendations F/u Nephrology recommendations Monitor platelets Monitor renal function. Monitor electrolytes. Supplement as necessary. Monitor ins and outs. GI prophylaxis - Pepcid DVT prophylaxis - Lovenox Prognosis: Poor given patient's multiple co-morbidities. Rest of plan per hospitalist and other consultants. Thank you Lisa Barrett NP, for allowing me to participate in this patient's care. Further recommendations will depend on the patient's clinical course. Please do not hesitate to contact me if you have any questions or concerns. This medical document was created using an electronic medical record system with [employer] system. Although these documentations are being carefully reviewed, there may still be some phonetic and typographical changes. The errors are purely typographical, due to imperfection on the software program, and do not reflect any compromise in the patient's medical care. Plan discussed with: Patient, Other (KIMBERLY Cantrell) SONY RAMEY MD Apr 05, 2024 18:23
[2024-04-05] MEDS: TREPROSTINIL DIOLAMINE PO SCH ×2 (18:34)
[2024-04-05] MEDS: TREPROSTINIL DIOLAMINE 1 MG PO SCH (18:34)
[2024-04-05] MEDS: ENOXAPARIN SOD 100 MG/1 ML SYRINGE SC SCH (21:35)
[2024-04-06] VITALS (9 sets, daily range): BP systolic 94–116; BP diastolic 53–79; PULSE 59–102; RESP 18–19; TEMP 97.5–98.8; O2SAT 94–98
[2024-04-06 06:38] LABS: Chloride 107 mmol/L (98-107); Potassium 4.1 mmol/L (3.5-5.1); Sodium 142 mmol/L (136-145)
[2024-04-06 06:39] LABS: Anion Gap 6 (5-15); Basophils # (auto) 0 10 ^3/uL (0-0.2); Basophils % (auto) 0.7 % (0.0-2.0); Calcium 9.5 mg/dL (8.7-10.4); Carbon Dioxide 29 mmol/L (20-31); Eosinophils # (auto) 0.2 10 ^3/uL (0-0.8); Eosinophils % (auto) 2.9 % (0.0-7.0); Hematocrit 36.7 % (36.0-46.0); Hemoglobin 11.9 g/dL (12.2-16.2); Lymphocytes # (auto) 1.3 10 ^3/uL (0.4-5.4); Lymphocytes % (auto) 24.3 % (10.0-50.0); Mean Corpuscular Hemoglobin 28.5 pg (28.0-32.0); Mean Corpuscular Hgb Conc. 32.5 g/dL (32.0-36.0); Mean Corpuscular Volume 87.5 fL (80.0-100.0); Monocytes # (auto) 0.2 10 ^3/uL (0-1.3); Monocytes % (auto) 4.5 % (0.0-12.0); Neutrophils # (auto) 3.6 10 ^3/uL (1.6-8.6); Neutrophils % (auto) 67.6 % (37.0-80.0); Nucleated Red Blood Cells % 0.1 %; Platelet Count (auto) 111 10^3/uL (140-450); Red Cell Distribution Width 15.4 % (11.8-14.3); White Blood Cell 5.3 10^3/uL (4.4-10.8)
[2024-04-06 06:44] LABS: BUN/Creatinine Ratio 21.4 (10.0-20.0); Blood Urea Nitrogen 27 mg/dL (9-23); Glucose 85 mg/dL (74-106)
[2024-04-06] MEDS ORDERED: LEVALBUTEROL HCL 1.25 MG/3 ML NEB NEB PRN (11:30)
--- NOTE | 2024-04-06 13:38 | ECG ---
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
--- NOTE | 2024-04-06 15:08 | DVH ---
NUCLEAR MEDICINE VENTILATION/PERFUSION LUNG SCAN. INDICATION: Dyspnea TECHNIQUE: Following intravenous demonstration of 6 millicuries of technetium 99m MAA, and inhalati on of 40 mCi of Tc 99m DTPA scintigrams were obtained in multiple projections of the lungs. FINDINGS: There is normal uptake of radionuclide on both the ventilation and perfusion portions of the examinat ion. No mismatched perfusion defects are demonstrated. Uptake is normally homogeneous. IMPRESSION: Low probability for PE.
[2024-04-06] MEDS: ONDANSETRON HCL 4 MG/2 ML VIAL IV PRN (16:42)
--- NOTE | 2024-04-06 19:03 | DVHPN2 ---
Progress Note - Dictate Date Seen: Apr 06, 2024 Medical Necessity Reason Pt with a Central, PICC or Fol: No Subjective Patient seen and examined at bedside. Remains on supplemental oxygen Overnight events reviewed. vital signs Vital Sign Date Time Temp Pulse Resp B/P (MAP) Pulse Ox O2 Delivery O2 Flow Rate FiO2 04/06/24 17:00 97.6 94 18 101/58 (72) 95 97.6 04/06/24 10:00 Nasal Cannula* 2 28 Total Intake and Output 04/05/24 04/05/24 04/06/24 15:00 23:00 07:00 Intake Total 650 ml 500 ml Output Total 400 ml 400 ml Balance 250 ml 100 ml medications Current Medications Medications Dose Ordered Sig/Abrahan Route Start Time Stop Time Status Last Admin Dose Admin Ondansetron HCl 4 mg Q6HPRN PRN IV 04/04/24 02:15 04/06/24 16:42 4 MG Furosemide 40 mg BID IV 04/04/24 10:00 04/06/24 09:02 40 MG Melatonin 5 mg ONCE@2200 PRN PO 04/04/24 02:15 Famotidine 20 mg DAILY PO 04/04/24 10:00 04/06/24 09:03 20 MG Acetaminophen/ Hydrocodone Bitart 1 tab Q6HPRN PRN PO 04/04/24 02:15 04/06/24 15:43 1 TAB Acetaminophen 650 mg Q6HPRN PRN PO 04/04/24 02:15 Enoxaparin Sodium 70 mg HS SC 04/05/24 22:00 04/05/24 21:35 70 MG Sildenafil Citrate 20 mg TID PO 04/05/24 14:00 04/06/24 13:53 20 MG Patient Own Medication 1 tab DAILY PO 04/06/24 10:00 Patient Own Medication 0.5 mg TIDWMEALS PO 04/05/24 18:00 04/06/24 12:18 0.5 MG Patient Own Medication 1 mg TIDWMEALS PO 04/05/24 18:00 04/06/24 12:19 1 MG Patient Own Medication 5 mg TIDWMEALS PO 04/05/24 18:00 04/06/24 12:19 5 MG Levalbuterol HCl 1.25 mg Q6HPRN PRN NEB 04/06/24 11:30 objective Gen.: Patient lying in bed in no apparent distress. On supplemental oxygen. Head: Normocephalic, atraumatic. Eyes: EOMI/PERRLA. Ears: Normal hearing. Normal anatomy. Neck/trachea: Trachea midline, supple. Nose: Normal external anatomy. Mouth: Moist mucous membranes. Chest: Decreased air entry bilaterally. No wheezing or rhonchi. Cardiovascular: Positive S1, positive S2. Regular rate and rhythm. Abdomen: Positive bowel sounds in all 4 quadrants. Soft, non-tender, non- distended. : Deferred. Rectal: Deferred. Skin: Warm, dry. Intact. Extremities: 2+ radial pulses bilaterally. No lower extremity edema. Neuro: Awake, alert, oriented x3. No gross motor or sensory deficits. Cranial nerves II through XII intact. Gait not assessed. laboratory and microbiology Laboratory Tests 04/06/24 06:03 Test 04/06/24 06:03 Range/Units Serum Glucose 85 74-106 mg/dL Assessment/Plan Impression: Acute on chronic hypoxic respiratory failure Pulmonary hypertension, RVSP 83 mmHg Acute CHF exacerbation Acute kidney injury Elevated D-dimer Thrombocytopenia Anxiety disorder Events: Remains on supplemental oxygen 2 LPM NC Taper O2 as tolerated. Improved O2 requirements. Diurese to euvolemia Monitor renal function. Monitor electrolytes. Supplement as necessary. Monitor ins and outs. Continue sildenafil 20 mg p.o. TID, Orenitram 6.5 mg p.o. QD, and Opsumit 10 mg p.o. QD for pulmonary HTN V/Q scan pending. Pain control Avoid oversedation Labs and imaging reviewed. Rest of plan as noted below. Plan: Supplemental oxygen 2 LPM NC Titrate to keep O2 sats above 92%. Taper O2 as tolerated. Bronchodilators. Steroids Incentive spirometry F/u Cardiology recommendations F/u Nephrology recommendations Monitor platelets Monitor renal function. Monitor electrolytes. Supplement as necessary. Monitor ins and outs. GI prophylaxis - Pepcid DVT prophylaxis - Lovenox Prognosis: Poor given patient's multiple co-morbidities. Rest of plan per hospitalist and other consultants. Thank you Lisa Barrett NP, for allowing me to participate in this patient's care. Further recommendations will depend on the patient's clinical course. Please do not hesitate to contact me if you have any questions or concerns. This medical document was created using an electronic medical record system with Dragon computerized dictation system. Although these documentations are being carefully reviewed, there may still be some phonetic and typographical changes. The errors are purely typographical, due to imperfection on the software program, and do not reflect any compromise in the patient's medical care. Plan discussed with: Patient, Other (KIMBERLY Davies) SONY RAMEY MD Apr 06, 2024 19:03
== END 2024-04-06 19:10 | disposition home or self-care (01) | DRG 291 ==
LOC: EDUNIT# 22:27 → EDBD 22:27 → ER 22:27 → TELE 04-04 02:03 → TELE-WESTW 04-04 17:27
PROVIDERS: ADMIT Nurse Practitioner Family; ATTEND Internal Medicine
DX: I11.0 Hypertensive heart disease with heart failure (principal); I50.33 Acute on chronic diastolic (congestive) heart failure; J96.21 Acute and chronic respiratory failure with hypoxia; N17.9 Acute kidney failure, unspecified; I27.20 Pulmonary hypertension, unspecified; D69.6 Thrombocytopenia, unspecified; F41.9 Anxiety disorder, unspecified; D64.9 Anemia, unspecified; F32.A Depression, unspecified; E78.5 Hyperlipidemia, unspecified; Z86.73 Personal history of transient ischemic attack (TIA), and cerebral infarction without residual deficits; Z82.49 Family history of ischemic heart disease and other diseases of the circulatory system; Z82.3 Family history of stroke
CPT/HCPCS: 36415; 71045; 74176; 78582; 80048; 81001; 83735; 83880; 85025; 85379; 85610; 87081; 93005; 94640; 99291; G0378; J1100; J2405; J7060